=== PATIENT | female | born 1995 | race Caucasian/White ===

== ENCOUNTER 2020-06-01 16:41 | Outpatient (REF) | payer MEDICAID, OTHER, SELFPAY ==
--- NOTE | 2020-06-01 | XR_ITS ---
EXAMINATION: XR CERVICAL SPINE CLINICAL INFORMATION: Pain COMPARISON: None TECHNIQUE: 5 views of the cervical spine were obtained. FINDINGS: There are no prevertebral soft tissue or bony abnormalities demonstrated. No compression fractures or subluxations are identified. Alignment is maintained at the atlanto-axial articulation. The disc spaces are preserved. No endplate changes are seen. The prevertebral soft tissues are normal. The foramina are patent. IMPRESSION: Normal cervical spine radiographs.
--- NOTE | 2020-06-01 | XR_ITS ---
EXAMINATION: XR BILATERAL HIPS WITH AP PELVIS CLINICAL INFORMATION: Pain COMPARISON: None TECHNIQUE: AP view of the pelvis and single views of each hip were obtained. FINDINGS: The bones and soft tissues are normal. No fracture. Mild degenerative changes of SI joints. Hip joints are normal. Pubic symphysis is normal. No abnormal soft tissue calcifications. IMPRESSION: Sclerotic changes of the SI joint suggesting bilateral mild sacroiliitis left more than right. May consider correlation with dedicated SI joint views and/or MRI. Pelvic bones and hips are intact.
--- NOTE | 2020-06-01 | XR_ITS ---
EXAMINATION: XR DORSAL SPINE CLINICAL INFORMATION: Pain COMPARISON: None available at the time of this dictation. TECHNIQUE: Frontal and lateral FINDINGS: There is no evidence of fracture or dislocation. The vertebral bodies maintain normal height and alignment. Intervertebral disc spaces are preserved. The paravertebral soft tissues are unremarkable. Adjacent lungs are clear. IMPRESSION: No radiographic evidence of fracture. No acute osseous changes. Bone alignment satisfactory.
--- NOTE | 2020-06-01 | XR_ITS ---
EXAMINATION: XR LUMBAR SPINE CLINICAL INFORMATION: Pain COMPARISON: None TECHNIQUE: Frontal lateral and coned-down L5-S1 frontal lateral FINDINGS: Five [id number] lumbar vertebrae were identified maintaining normal height and alignments. Intervertebral disc spaces are preserved. Paravertebral soft tissues are unremarkable. There are radiolucencies, most likely superimposed bowel gas.. No radiographic evidence of osteolytic or osteoblastic lesions. IMPRESSION: Normal radiograph. No fracture. Bone alignments are satisfactory.
== END 2020-06-01 16:42 | disposition home or self-care (01) ==
LOC: HO.XRAY 16:41
PROVIDERS: PCP Internal Medicine; Visit Provider Internal Medicine
DX: M54.2 Cervicalgia (principal); M54.9 Dorsalgia, unspecified
CPT/HCPCS: 72050; 72070; 72110; 73521

== ENCOUNTER 2020-07-20 16:12 | Emergency (ER) | payer MEDICAID, OTHER, SELFPAY ==
[2020-07-20 16:39] VITALS: BP 126/75; PULSE 79; RESP 18; TEMP 36.7; O2SAT 98; BMI 38.7
[2020-07-20 17:31] VITALS: BP 111/70; PULSE 75; RESP 16; TEMP 37; O2SAT 98
--- NOTE | 2020-07-20 17:32 | PC.NURSE ---
pt states bleeding x 15 days. changing pad x 5 daily. pt has minimal blood noted on pad at present. instructed not to change pad.
[2020-07-20] MEDS: 0.9 % Sodium Chloride 1,000 ML 999 ML IV (17:36)
[2020-07-20 17:54] LABS: MANUAL DIFF FLAG NO
[2020-07-20 18:03] LABS: Glucose Urine UA NEG (NEG); Leukocyte Esterase Urine TRACE (NEG); Nitrite Urine NEG (NEG); PH 5.5 (5.0-8.0); Specific Gravity - Urine >= 1.030 (1.005-1.025); Urine Blood 3+ (NEG); Urine Ketones 5 MG/DL (NEG); Urine Protein 2+ MG/DL (NEG-TRACE)
[2020-07-20 18:06] LABS: Appearance Urine CLOUDY; Color Urine AMBER
[2020-07-20 18:07] LABS: UPreg QC Valid YES; Urine Pregnancy NEGATIVE (NEGATIVE)
[2020-07-20 18:11] LABS: Basophils Absolute Auto 0.1 X10*3/uL (0.0-0.2); Basophils Percent Auto 0.7 % (0-2); Eosinophils Absolute Auto 0.2 X10*3/uL (0.0-0.4); Eosinophils Percent Auto 1.9 % (0-4); Hematocrit 39.7 % (37-47); Hemoglobin 13.1 g/dl (12.0-16.0); Imm Gran Abs Auto 0.05 X10*3/uL (0.00-0.03); Imm Gran Pct Auto 0.6 % (0.0-0.4); Lymphocytes Absolute Auto 2.5 X10*3/uL (1.2-4.9); Lymphocytes Percent Auto 29.6 % (20-40); Mean Corpuscular Hemoglobin 29.4 pg (27.0-33.0); Mean Platelet Volume 9.9 fL (9.4-12.3); Monocytes Absolute Auto 0.6 X10*3/uL (0.1-1.2); Monocytes Percent Auto 6.6 % (2-11); Neutrophils Absolute Auto 5.1 X10*3/uL (2.0-8.3); Neutrophils Percent Auto 60.6 % (45-73); Platelet Count 311 X10*3/uL (160-400); Red Blood Count 4.46 X10*6/uL (4.20-5.50); Red Cell Distribution Width 12.6 % (11.0-16.0); White Blood Count 8.5 X10*3/uL (4.8-10.8)
[2020-07-20 18:19] LABS: Bacteria Urine 1+ /LPF; RBC Urine 30-49 /HPF (0); Squamous Epithelial Cell Urine 1+ /LPF; WBC Urine 0-2 /HPF (0-4)
[2020-07-20 18:21] LABS: Alanine Aminotransferase 48 U/L (0-31); Albumin Level 4.3 g/dL (3.5-5.0); Alkaline Phosphatase 101 U/L (39-117); Anion Gap 13 (12-20); Aspartate Amino Transferase 26 U/L (5-31); Bilirubin Total 0.2 mg/dL (0.0-1.0); Blood Urea Nitrogen 12 mg/dL (9-16); Calcium 8.4 mg/dL (8.4-10.2); Carbon Dioxide 24 mmol/L (22-29); Chloride 105 mmol/L (96-108); Creatinine Clr Calc Pharmacy 154.3; Estimated Glomerular Filt Rate > 60; Glucose Random 78 mg/dL (60-115); Sodium 138 mmol/L (135-145); Total Protein 6.9 g/dL (6.5-8.0)
[2020-07-20 19:17] VITALS: BP 125/79; PULSE 75; RESP 16; TEMP 36.9; O2SAT 97
--- NOTE | 2020-07-20 19:53 | ED_ITS ---
HPI - General Chief complaint: Vaginal Bleeding Stated complaint: BLEEDING Time Seen by Provider: 07/20/20 16:52 Source: patient Mode of arrival: ambulatory Limitations: no limitations History of Present Illness HPI Narrative: 25-year-old female Presents today with complaint of vaginal bleeding. States she had her normal period 7 days ago and now she has been bleeding for 3 additional days normally her period lasts about 4 days and has been continuing on with heavy bleeding. States her usual pelvic cramping otherwise no dysuria, abdominal pain, nausea vomiting or diarrhea. States no concern for STI. MD Complaint: vaginal bleeding Location: pelvis Radiation: pelvis Associated symptoms: denies other symptoms Vaginal discharge: none Vaginal bleeding: heavy Related Data Allergies Allergy/AdvReac Type Severity Reaction Status Date / Time No Known Allergies Allergy Unverified 04/29/20 19:38 [No Known Allergies*] Review of Systems Review of Systems: Constitutional: No Weight loss, No Fever, No Chills, No Night Sweats, No Fatigue, No Malaise ENT/Mouth: No Hearing loss, No Ear Pain, No Nasal Congestion, No Sinus Pain, No Hoarseness, No sore throat, No Rhinorrhea, No Swallowing Difficulty Eyes: No Eye Pain, No Swelling, No Redness, No Foreign Body, No Discharge, No Vision Changes Cardiovascular: No Chest Pain, No SOB, No Dyspnea on Exertion, No Orthopnea, No Edema, No Palpitations Respiratory: No Cough, No Sputum, No Wheezing, No Smoke Exposure, No Dyspnea Gastrointestinal: No Nausea, No Vomiting, No Diarrhea, No Constipation, No abdominal Pain, No Hematochezia, No Melena Genitourinary: As noted in HPI , No Dysuria, No Urinary Frequency, No Hematuria, No Urinary Incontinence, No Urgency, No Flank Pain, No Urinary Flow Changes, No Hesitancy Musculoskeletal: No joint pain, No Myalgias, No Joint Swelling Skin: No Skin Lesions, No rash Neuro: No Weakness, No Numbness, No Paresthesias, No Loss of Consciousness, No Dizziness, No Headache Psych: No Social Issues Heme/Lymph: No Bruising, No Bleeding,No Lymphadenopathy Endocrine: No Polyuria, No Polydipsia, No Temperature Intolerance Yes all other systems are reviewed and are negative [facility] Past Medical History Medical History (Updated 07/21/20 @ 00:01 by Neeru Smith) Asthma Social History Social History Advance Directives: No Advance Directives Information Provided: Yes Physical Exam Vital Signs: Vital Signs: Last Vital Signs Temp 98.5 F 07/20/20 19:17 Pulse 75 07/20/20 19:17 Resp 16 07/20/20 19:17 BP 125/79 07/20/20 19:17 Pulse Ox 97 07/20/20 19:17 Body Mass Index 38.7 Reviewed MDM - OB/Uterine Contractions MDM Narrative Medical decision making narrative: prolonged period versus dysfunctional uterine bleeding that have some slight pelvic pain thus ultrasound ordered. Labs overall stable with stable H&H. Decline pelvic exam here. 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 Lab Data Result diagrams: 07/20/20 17:26 07/20/20 17:26 Labs: Lab Results 07/20/20 07/20/20 07/20/20 Range/Units 17:26 17:26 17:26 WBC 8.5 (4.8-10.8) X10*3/uL RBC 4.46 (4.20-5.50) X10*6/uL Hgb 13.1 (12.0-16.0) g/dl Hct 39.7 (37-47) % MCV 89.0 (80-98) fL MCH 29.4 (27.0-33.0) pg MCHC 33.0 (31.0-35.0) g/dl RDW 12.6 (11.0-16.0) % Plt Count 311 (160-400) X10*3/uL MPV 9.9 (9.4-12.3) fL Immature Gran % (Auto) 0.6 H (0.0-0.4) % Neut % (Auto) 60.6 (45-73) % Lymph % (Auto) 29.6 (20-40) % Lyon % (Auto) 6.6 (2-11) % Eos % (Auto) 1.9 (0-4) % Baso % (Auto) 0.7 (0-2) % Lymph # (Auto) 2.5 (1.2-4.9) X10*3/uL Lyon # (Auto) 0.6 (0.1-1.2) X10*3/uL Eos # (Auto) 0.2 (0.0-0.4) X10*3/uL Baso # (Auto) 0.1 (0.0-0.2) X10*3/uL Abs Immat Gran (auto) 0.05 H (0.00-0.03) X10*3/uL Absolute Neuts (auto) 5.1 (2.0-8.3) X10*3/uL Absolute Nucleated RBC 0.000 (0.0-0.012) X10*3/uL Nucleated RBC % (auto) 0.0 (0.0-0.2) /100WBC Sodium 138 (135-145) mmol/L Potassium 4.0 (3.3-5.1) mmol/l Chloride 105 (96-108) mmol/L Carbon Dioxide 24 (22-29) mmol/L Anion Gap 13 (12-20) BUN 12 (9-16) mg/dL Creatinine 0.69 (0.5-1.4) mg/dL Estim Creat Clear Calc 154.3 Estimated GFR > 60 Random Glucose 78 (60-115) mg/dL Calcium 8.4 (8.4-10.2) mg/dL Total Bilirubin 0.2 (0.0-1.0) mg/dL AST 26 (5-31) U/L ALT 48 H (0-31) U/L Alkaline Phosphatase 101 (39-117) U/L Total Protein 6.9 (6.5-8.0) g/dL Albumin 4.3 (3.5-5.0) g/dL Urine Color SHU Urine Appearance CLOUDY Urine pH 5.5 (5.0-8.0) Ur Specific [place] >= 1.030 H (1.005-1.025) Urine Protein 2+ H (NEG-TRACE) MG/DL Urine Glucose (UA) NEG (NEG) MG/DL Urine Ketones 5 (NEG) MG/DL Urine Blood 3+ H (NEG) Urine Nitrite NEG (NEG) Ur Leukocyte Esterase TRACE H (NEG) Urine RBC 30-49 H (0) /HPF Urine WBC 0-2 (0-4) /HPF Ur Squamous Epith Cells 1+ /LPF Urine Bacteria 1+ /LPF Urine Test NEGATIVE (NEGATIVE) Discharge Plan Discharge Clinical Impression: Vaginal bleeding Patient Disposition: Home, Self-Care Instructions: Dysfunctional Uterine Bleeding (ED) Referrals: Veronica Matta MD [Primary Care Provider] - 2 days Interventions: ED Discharge Assessment Last Done: 07/20/20 20:11 Discharge Date/Time: 07/20/20 20:15
--- NOTE | 2020-07-20 20:00 | PC.NURSE ---
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 PT UPDATED WAITING FOR ULTRASOUND. PT DID NOT WANT TO WAIT FOR FURTHER EVALUATION. PT STATES WILL F/U WITH HER PCP. IV WAS REMOVED. WAITING FOR D/C PAPERS.
== END 2020-07-20 20:15 | disposition home or self-care (01) ==
PROVIDERS: Nurse Practitioner Primary Care; Emergency Provider Internal Medicine; PCP Internal Medicine
DX: N93.8 Other specified abnormal uterine and vaginal bleeding (principal)
CPT/HCPCS: 36415; 80053; 81001; 81025; 85025; 87086; 96360; 99284

== ENCOUNTER 2020-12-28 17:20 | Emergency (ER) | payer MEDICAID, OTHER, SELFPAY ==
[2020-12-28 17:42] VITALS: BP 144/81; PULSE 85; RESP 18; TEMP 36.6; O2SAT 99; BMI 40.7
--- NOTE | 2020-12-28 18:12 | ED.URI ---
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 No fevers or chills. Received 1st COVID vaccine November 29. She is pending her 2nd vaccine. No cough, shortness of breath, chest pain, leg swelling or pain Related Data Previous Rx's Medication Instructions Recorded amoxicillin-pot clavulanate 1 tab PO Q12H #14 tab 12/28/20 [Augmentin] ciprofloxacin-dexamethasone 4 drp OTIC (EARS) BID 7 Days #7.5 12/28/20 [Ciprodex] ml ibuprofen 600 mg PO Q8H PRN #20 tab 12/28/20 Allergies Allergy/AdvReac Type Severity Reaction Status Date / Time No Known Allergies Allergy Verified 12/28/20 17:42 [No Known Allergies*] Review of Systems Review of Systems: Yes all other systems are reviewed and are negative Constitutional: Constitutional: Reports no additional constitutional complaints, Reports body ache(s), Denies chills, Denies fever(s), Reports headache(s) and Denies weakness Eyes: Eyes: Reports no additional eye complaints and Denies change in vision ENT: Reports system reviewed and no additional complaints, except as documented, Denies dizziness, Reports otalgia, Reports headache(s), Denies nasal congestion, Denies nasal discharge, Denies neck pain and Reports sore throat Cardiovascular: Cardiovascular: Reports no additional cardiovascular complaints, Denies chest pain, Denies leg edema and Denies dyspnea Respiratory: Respiratory: Reports no additional respiratory complaints, Denies cough and Denies dyspnea Gastrointestinal: Gastrointestinal: Reports no additional gastrointestinal complaints, Denies abdominal pain, Denies diarrhea, Denies nausea and Denies vomiting Genitourinary: Genitourinary: Reports no additional female genitourinary complaints and Denies urinary incontinence Musculoskeletal: Musculoskeletal: Reports no additional musculoskeletal complaints, Denies back pain, Denies arthralgias, Denies joint swelling, Denies neck pain, Denies numbness and Denies tingling Integumentary/Breasts: Skin/Breast: Reports system reviewed and no additional complaints, except as docu and Denies rash Neurologic: Denies Abnormal speech present, Denies dizziness, Reports headache(s), Denies numbness, Denies tingling and Denies weakness PMFSH Past Medical History Attestation statement: The following information was validated with the patient. Source: old records reviewed and nursing notes reviewed Medical History Asthma Social History Social History Advance Directives: No Advance Directives Information Provided: No Patient : No Physical Exam Vital Signs: Vital Signs: Last Vital Signs Temp 97.9 F 12/28/20 17:42 Pulse 85 12/28/20 17:42 Resp 18 12/28/20 17:42 BP 144/81 H 12/28/20 17:42 Pulse Ox 99 12/28/20 17:42 Body Mass Index 40.7 Const: General: cooperative, healthy appearing, comfortable and no acute distress Orientation/consciousness: patient oriented x3 Limitations: no limitations HENMT: Head: Yes normal to inspection Ears: hearing grossly normal bilaterally, mastoids normal, no periauricular adenopathy and TM abnormal (Bilateral TM with erythema and bulging) General nose exam: Normal external nose present Face and sinus: Yes normal facial exam Mouth: Normal oral and palatal mucosa present Throat: Yes posterior oropharynx normal Eyes: General: appearance normal, both eyes and all related structures Pupils: Equal, round and reactive pupils present Neck: Neck: Yes normal visual inspection, Yes full ROM, Yes no lymphadenopathy and Yes no meningeal signs Chest: Chest palpation & inspection: normal inspection of the chest Resp: Effort & Inspection: normal respiratory effort Auscultation: clear to auscultation bilaterally Cardio: Rate: regular rate Rhythm: regular rhythm Peripheral pulses: Peripheral pulses 2+ throughout GI: Inspection: Yes normal to inspection Palpation (GI): Soft to palpation and nontender Auscultation: normal bowel sounds Back/Spine/Pelvis: Thoracic/Lumbar Spine: thoracic and lumbar spine normal to inspection Skin: General skin exam: no rashes or lesions noted Neuro: General: patient oriented x3, no meningeal signs, no focal motor deficits and normal sensation to monofilament Cranial nerves: Yes Equal, round and reactive pupils present Cognition (Neuro): normal cognition Speech: No Abnormal speech present Gait exam (Neuro): Normal gait present Motor exam (neuro): 5/5 motor strength present throughout Extrem: General: Yes normal to inspection Course Course Course Narrative: 25 yo female here sore throat, bilateral ear pain, headache, body aches. Exam consistent with bilateral AOM. Will send COVID screen. -COVID screen negative. Will treat AOM with amoxicillin times 10 days. Reviewed worrisome signs and symptoms when to return to the emergency department. Comfortable discharge home. MDM - URI/Sore Throat Medical Records Attestation: I reviewed the patient's medical records. Lab Data Attestation: I reviewed the patient's lab results. Labs: Lab Results 12/28/20 Range/Units 17:55 COVID-19 (SIL) Negative (Negative) COVID-19 Clin Com See Note Discharge Plan Discharge Clinical Impression: Acute otitis media Qualifiers: Otitis media type: suppurative Laterality: bilateral Recurrence: non-recurrent Spontaneous tympanic membrane rupture: without spontaneous rupture Qualified Code(s): H66.003 - Acute suppurative otitis media without spontaneous rupture of ear drum, bilateral Patient Disposition: Home, Self-Care Instructions: Ear Infection (ED) Additional Instructions: Motrin or Tylenol for pain Increase fluids, rest Your COVID test is negative Prescriptions: New amoxicillin-pot clavulanate [Augmentin] 875-125 mg tablet 1 tab PO Q12H Qty: 14 RF: 0 ciprofloxacin-dexamethasone [Ciprodex] 0.3-0.1 % drops,suspension 4 drp otic (ears) BID 7 Days Qty: 7.5 RF: 0 ibuprofen 600 mg tablet 600 mg PO Q8H PRN (Reason: pain) Qty: 20 RF: 0 Referrals: Veronica Matta MD [Primary Care Provider] - 2 days Stand Alone Forms: Work/School Release Interventions: ED Discharge Assessment Last Done: 12/28/20 18:44 Discharge Date/Time: 12/28/20 18:44 Print Language: Thai
[2020-12-28 18:31] LABS: COVID-19 Test Negative (Negative); IDNOW Serial# 08D9AD1C
== END 2020-12-28 18:44 | disposition home or self-care (01) ==
PROVIDERS: Nurse Practitioner Family; Emergency Provider Emergency Medicine; PCP Internal Medicine
DX: H66.003 Acute suppurative otitis media without spontaneous rupture of ear drum, bilateral (principal); Z20.822 Contact with and (suspected) exposure to COVID-19; J02.9 Acute pharyngitis, unspecified
CPT/HCPCS: 36415; 87635; 99283

== ENCOUNTER 2021-01-19 11:40 | Outpatient (REF) | payer MEDICAID, OTHER, SELFPAY ==
--- NOTE | ~2021-01-19 | US_ITS ---
EXAMINATION: US ABDOMEN COMPLETE CLINICAL INFORMATION: Right upper quadrant postprandial pain. COMPARISON: None. TECHNIQUE: Real-time imaging of the abdominal viscera. FINDINGS: PANCREAS: The head and the body of the pancreas is appears unremarkable. The tail is obscured borderline gas. ABDOMINAL AORTA: The proximal, mid, and distal segments are normal in caliber. INFERIOR VENA CAVA: Visualized portions are normal. LIVER: The liver is normal in size. The liver contour is normal. There is mild increased liver echogenicity. No focal hepatic lesion. There is no intrahepatic biliary duct dilatation seen. GALLBLADDER: There are gallbladder fold visualized within. The gallbladder is physiologically distended without evidence of stones, sludge, polyps, wall thickening or pericholecystic fluid. COMMON BILE DUCT: Normal in caliber measuring 0.29 cm in diameter. Limited views. RIGHT KIDNEY: Normal. No hydronephrosis. No renal calculi or focal parenchymal lesions. The kidney measures 11.0 cm in maximum dimension. LEFT KIDNEY: Normal. No hydronephrosis. No renal calculi or focal parenchymal lesions. The kidney measures 11.0 cm in maximum dimension. SPLEEN: Normal. The spleen measures 12.3 cm in maximum dimension. FREE FLUID: None. ADDITIONAL FINDINGS: Incidentally noted is a small anechoic cyst arising off the left ovary measuring 7.7 x 5.2 x 8.2 cm. US/US abdomen complete IMPRESSION: Diffuse hepatic steatosis. No focal lesion seen. Rest of the abdominal ultrasound appears unremarkable. Incidental finding of 7.7 cm left ovarian cyst.
== END 2021-01-19 11:41 | disposition home or self-care (01) ==
LOC: HO.HMGCX 11:40
PROVIDERS: PCP Internal Medicine; Visit Provider Emergency Medicine
DX: R10.11 Right upper quadrant pain (principal); K21.9 Gastro-esophageal reflux disease without esophagitis
CPT/HCPCS: 76700

== ENCOUNTER 2021-04-27 11:59 | Emergency (ER) | payer OTHER, MEDICAID, SELFPAY ==
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
[2021-04-27 12:09] VITALS: BP 129/76; PULSE 79; RESP 17; TEMP 36.5; O2SAT 100; BMI 39.4
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
--- NOTE | 2021-04-27 13:46 | ECG_ITS ---
Test Reason : CHEST WALL PAIN Blood Pressure : / mmHG Vent. Rate : 063 BPM Atrial Rate : 063 BPM P-R Int : 160 ms QRS Dur : 090 ms QT Int : 374 ms P-R-T Axes : 029 012 -09 degrees QTc Int : 382 ms Normal sinus rhythm Nonspecific T wave abnormality Abnormal ECG No previous ECGs available Referred By: Georgette Milner Electronically Signed By:SAPNA JEAN
[2021-04-27] MEDS: Acetaminophen 325 MG TABLET 975 MG PO (14:11)
== END 2021-04-27 15:04 | disposition home or self-care (01) ==
PROVIDERS: Emergency Provider Emergency Medicine; PCP Internal Medicine
DX: S13.4XXA Sprain of ligaments of cervical spine, initial encounter (principal); S46.911A Strain of unspecified muscle, fascia and tendon at shoulder and upper arm level, right arm, initial encounter; S39.012A Strain of muscle, fascia and tendon of lower back, initial encounter; M25.511 Pain in right shoulder; M54.2 Cervicalgia; R07.89 Other chest pain; V43.02XA Car driver injured in collision with other type car in nontraffic accident, initial encounter; Y93.9 Activity, unspecified; Y92.412 Parkway as the place of occurrence of the external cause; Y99.9 Unspecified external cause status; Z79.899 Other long term (current) drug therapy
CPT/HCPCS: 71046; 72072; 72125; 73030; 93005; 99284

== ENCOUNTER 2021-09-05 00:27 | Emergency (ER) | payer MEDICAID, OTHER, SELFPAY ==
[2021-09-05 00:38] VITALS: BP 118/82; PULSE 83; RESP 18; TEMP 37; O2SAT 100; BMI 37.1
[2021-09-05 01:25] LABS: MANUAL DIFF FLAG NO
[2021-09-05 01:27] LABS: Basophils Absolute Auto 0.1 X10*3/uL (0.0-0.2); Basophils Percent Auto 0.7 % (0-2); Eosinophils Absolute Auto 0.2 X10*3/uL (0.0-0.4); Eosinophils Percent Auto 1.7 % (0-4); Hematocrit 38.7 % (37.0-47.0); Hemoglobin 13.2 g/dl (12.0-16.0); Imm Gran Abs Auto 0.02 X10*3/uL (0.00-0.03); Imm Gran Pct Auto 0.2 % (0.0-0.4); Lymphocytes Absolute Auto 3.2 X10*3/uL (1.2-4.9); Lymphocytes Percent Auto 36.8 % (20-40); Mean Corpuscular HGB Conc 34.1 g/dl (31.0-35.0); Mean Corpuscular Hemoglobin 30.3 pg (27.0-33.0); Mean Corpuscular Volume 88.8 fL (80.0-98.0); Mean Platelet Volume 9.5 fL (9.4-12.3); Monocytes Absolute Auto 0.6 X10*3/uL (0.1-1.2); Monocytes Percent Auto 6.9 % (2-11); Neutrophils Absolute Auto 4.7 x10*3/uL (2.0-8.3); Neutrophils Percent Auto 53.7 % (45-73); Platelet Count 316 X10*3/uL (160-400); Red Blood Count 4.36 X10*6/uL (4.20-5.50); Red Cell Distribution Width 12.4 % (11.0-16.0); White Blood Count 8.7 X10*3/uL (4.8-10.8)
[2021-09-05 01:40] LABS: Alanine Aminotransferase 30 U/L (0-31); Albumin Level 4.2 g/dL (3.5-5.0); Alkaline Phosphatase 91 U/L (39-117); Anion Gap 14 (12-20); Aspartate Amino Transferase 16 U/L (5-31); Bilirubin Total 0.3 mg/dL (0.0-1.0); Blood Urea Nitrogen 17 mg/dL (9-16); Calcium 9.3 mg/dL (8.4-10.2); Carbon Dioxide 20 mmol/L (22-29); Chloride 106 mmol/L (96-108); Creatinine Clr Calc Pharmacy 133.9; Estimated Glomerular Filt Rate > 60; Glucose Random 116 mg/dL (60-115); Potassium 4.1 mmol/L (3.3-5.1); Sodium 136 mmol/L (135-145); Total Protein 7.1 g/dL (6.5-8.0)
[2021-09-05 01:41] LABS: COVID-19 Test Negative (Negative)
--- NOTE | 2021-09-05 01:48 | ED.ABDPAIN ---
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 However patient reports that last menstrual period was April but subsequent home tests in May and June were negative for and she endorses that her last sexual intercourse was in June. She presents today for vaginal bleeding that was ?a lot? and then started today with decrease in vaginal bleeding and noted clots but then began developing significant lower abdominal pain with associated nausea and an isolated episode of vomiting but otherwise denies any diarrhea and states that she did have subjective fever and chills but denies any shortness of breath or chest pain. Patient states she is COVID-19 vaccinated and last tested negative on Sunday. Her prior 2 pregnancies were complicated with high blood pressure, but she denies the necessity for early delivery due to the high blood pressure and instead has had 2 C sections, these were conducted in [place]. Related Data Previous Rx's Medication Instructions Recorded amoxicillin 875 mg-potassium 1 tab PO Q12H #14 tab 12/28/20 clavulanate 125 mg tablet (Augmentin) ciprofloxacin 0.3 %-dexamethasone 4 drp OTIC (EARS) BID 7 Days #7.5 12/28/20 0.1 % ear drops,suspension ml (Ciprodex) ibuprofen 600 mg tablet 600 mg PO Q8H PRN #20 tab 12/28/20 cyclobenzaprine 10 mg tablet 10 mg PO Q8H #10 tab 04/27/21 naproxen 500 mg tablet 500 mg PO BID PRN #10 tab 04/27/21 Allergies Allergy/AdvReac Type Severity Reaction Status Date / Time No Known Allergies Allergy Verified 09/05/21 00:45 [No Known Allergies*] Review of Systems Review of Systems Pertinent positives and negatives as stated in HPI 10 point review of systems is otherwise negative. Physical Exam Vital Signs: Vital Signs: Last Vital Signs Temp 98.6 F 09/05/21 00:38 Pulse 83 09/05/21 00:38 Resp 18 09/05/21 00:38 BP 118/82 09/05/21 00:38 Pulse Ox 100 09/05/21 00:38 BMI result Body Mass Index 37.1 VITAL SIGNS: Reviewed. GENERAL: Well developed, well nourished, in no acute distress. HEAD: Normocephalic/atraumatic EYES: PERRLA, EOMI EARS: Ext canals without abnormality, TMs non-bulging and non-erythematous NOSE: Nares patent bilateral OROPHARYNX: no oral lesions noted, posterior pharynx clear and non-erythematous without noted tonsillar enlargement/erythema/exudates NECK: Supple, no adenopathy LUNGS: Normal breath sounds without tachypnea or wheeze. No adventitious sounds or accessory muscle use. SpO2<100> CARDIOVASCULAR: Regular rate and rhythm without noted murmurs, no JVD or lower extremity edema. ABDOMEN: Soft, tenderness noted to lower abdomen without rebound, non-distended with bowel sounds. MUSCULOSKELETAL: No tenderness, deformities, or effusions noted on gross inspection. EXTREMITIES: No cyanosis, clubbing or edema. SKIN: Inspection of the skin reveals no rashes NEUROLOGIC: Alert and oriented x 4. Strength and sensation to light touch were grossly intact x 4. Bedside ultrasound: No intrauterine , yolk sac, gestational sac identified. Course Course Course Narrative: 26-year-old female with history and clinical presentation consistent with possible miscarriage, ectopic, early . Patient received combination analgesics after confirmed to not currently being . Review of all investigations significant for undetectable beta hCG, her vaginal bleeding has stopped, and patient was informed of all results. On re-evaluation patient is began to feel better after receiving analgesics treatment and will be discharged home in stable condition with information on resources should she become again so that she can get appropriate care. Reevaluation(s) Reevaluation #1: Beta hCG undetectable Time: 02:11 MDM - Abdominal Pain Lab Data Result diagrams: 09/05/21 01:09/05/21 01:21 Labs: Lab Results 09/05/21 09/05/21 09/05/21 Range/Units 01: 01:21 01:21 WBC 8.7 (4.8-10.8) X10*3/uL RBC 4.36 (4.20-5.50) X10*6/uL Hgb 13.2 (12.0-16.0) g/dl Hct 38.7 (37.0-47.0) % MCV 88.8 (80.0-98.0) fL MCH 30.3 (27.0-33.0) pg MCHC 34.1 (31.0-35.0) g/dl RDW 12.4 (11.0-16.0) % Plt Count 316 (160-400) X10*3/uL MPV 9.5 (9.4-12.3) fL Immature Gran % (Auto) 0.2 (0.0-0.4) % Neut % (Auto) 53.7 (45-73) % Lymph % (Auto) 36.8 (20-40) % [place] % (Auto) 6.9 (2-11) % Eos % (Auto) 1.7 (0-4) % Baso % (Auto) 0.7 (0-2) % Lymph # (Auto) 3.2 (1.2-4.9) X10*3/uL [place] # (Auto) 0.6 (0.1-1.2) X10*3/uL Eos # (Auto) 0.2 (0.0-0.4) X10*3/uL Baso # (Auto) 0.1 (0.0-0.2) X10*3/uL Abs Immat Gran (auto) 0.02 (0.00-0.03) X10*3/uL Absolute Neuts (auto) 4.7 (2.0-8.3) x10*3/uL Absolute Nucleated RBC 0.000 (0.0-0.012) X10*3/uL Nucleated RBC % (auto) 0.0 (0.0-0.2) /100WBC Sodium 136 (135-145) mmol/L Potassium 4.1 (3.3-5.1) mmol/L Chloride 106 (96-108) mmol/L Carbon Dioxide 20 L (22-29) mmol/L Anion Gap 14 (12-20) BUN 17 H (9-16) mg/dL Creatinine 0.77 (0.5-1.4) mg/dL Estim Creat Clear Calc 133.9 Estimated GFR > 60 Random Glucose 116 H (60-115) mg/dL Calcium 9.3 D (8.4-10.2) mg/dL Total Bilirubin 0.3 (0.0-1.0) mg/dL AST 16 (5-31) U/L ALT 30 (0-31) U/L Alkaline Phosphatase 91 (39-117) U/L Total Protein 7.1 (6.5-8.0) g/dL Albumin 4.2 (3.5-5.0) g/dL Beta HCG, Quant < 2 mIU/mL Urine Color Urine Appearance Urine pH (5.0-8.0) Ur Specific [place] (1.005-1.025) Urine Protein (NEG-TRACE) MG/DL Urine Glucose (UA) (NEG) MG/DL Urine Ketones (NEG) MG/DL Urine Blood (NEG) Urine Nitrite (NEG) Ur Leukocyte Esterase (NEG) Urine RBC (0) /HPF Urine WBC (0-4) /HPF Ur Squamous Epith Cells /LPF Urine Bacteria /LPF COVID-19 (SIL) Negative (Negative) COVID-19 Clin Com See Note Blood Type 09/05/21 09/05/21 Range/Units 01:21 01:55 WBC (4.8-10.8) X10*3/uL RBC (4.20-5.50) X10*6/uL Hgb (12.0-16.0) g/dl Hct (37.0-47.0) % MCV (80.0-98.0) fL MCH (27.0-33.0) pg MCHC (31.0-35.0) g/dl RDW (11.0-16.0) % Plt Count (160-400) X10*3/uL MPV (9.4-12.3) fL Immature Gran % (Auto) (0.0-0.4) % Neut % (Auto) (45-73) % Lymph % (Auto) (20-40) % [place] % (Auto) (2-11) % Eos % (Auto) (0-4) % Baso % (Auto) (0-2) % Lymph # (Auto) (1.2-4.9) X10*3/uL [place] # (Auto) (0.1-1.2) X10*3/uL Eos # (Auto) (0.0-0.4) X10*3/uL Baso # (Auto) (0.0-0.2) X10*3/uL Abs Immat Gran (auto) (0.00-0.03) X10*3/uL Absolute Neuts (auto) (2.0-8.3) x10*3/uL Absolute Nucleated RBC (0.0-0.012) X10*3/uL Nucleated RBC % (auto) (0.0-0.2) /100WBC Sodium (135-145) mmol/L Potassium (3.3-5.1) mmol/L Chloride (96-108) mmol/L Carbon Dioxide (22-29) mmol/L Anion Gap (12-20) BUN (9-16) mg/dL Creatinine (0.5-1.4) mg/dL Estim Creat Clear Calc Estimated GFR Random Glucose (60-115) mg/dL Calcium (8.4-10.2) mg/dL Total Bilirubin (0.0-1.0) mg/dL AST (5-31) U/L ALT (0-31) U/L Alkaline Phosphatase (39-117) U/L Total Protein (6.5-8.0) g/dL Albumin (3.5-5.0) g/dL Beta HCG, Quant mIU/mL Urine Color YELLOW Urine Appearance HAZY Urine pH 6.0 (5.0-8.0) Ur Specific [place] 1.025 (1.005-1.025) Urine Protein TRACE (NEG-TRACE) MG/DL Urine Glucose (UA) NEG (NEG) MG/DL Urine Ketones NEG (NEG) MG/DL Urine Blood 3+ H (NEG) Urine Nitrite NEG (NEG) Ur Leukocyte Esterase NEG (NEG) Urine RBC 0-2 (0) /HPF Urine WBC 1-4 (0-4) /HPF Ur Squamous Epith Cells 3+ /LPF Urine Bacteria 3+ /LPF COVID-19 (SIL) (Negative) COVID-19 Clin Com Blood Type O Positive Discharge Plan Discharge Clinical Impression: Abdominal pain, Miscarriage Patient Disposition: Home, Self-Care Instructions: Miscarriage (ED), Abdominal Pain (ED) Additional Instructions: 1. Tylenol 1000 mg, por v?a oral, cada 6 horas seg?n sea necesario para controlar el dolor. No exceda los 4000 mg dentro de las 24 horas. 2. Ibuprofeno 400 mg, por v?a oral con leche o alimentos, cada 6 horas seg?n sea necesario para controlar el dolor. Puede tanna jeffy medicamento con Tylenol para mejorar el alivio de los s?ntomas. 3. Considere roxanne almohadilla t?rmica para un alivio adicional de los s?ntomas. Regrese a la chu de emergencias si los s?ntomas empeoran. Prescriptions: No Action amoxicillin-pot clavulanate [Augmentin] 875-125 mg tablet 1 tab PO Q12H Qty: 14 RF: 0 ciprofloxacin-dexamethasone [Ciprodex] 0.3-0.1 % drops,suspension 4 drp otic (ears) BID 7 Days Qty: 7.5 RF: 0 ibuprofen 600 mg tablet 600 mg PO Q8H PRN (Reason: pain) Qty: 20 RF: 0 cyclobenzaprine 10 mg tablet 10 mg PO Q8H Qty: 10 RF: 0 naproxen 500 mg tablet 500 mg PO BID PRN (Reason: pain) Qty: 10 RF: 0 Referrals: Veronica Matta MD [Primary Care Provider] - 2 days Print Language: Mongolian [facility] Past Medical History Source: nursing notes reviewed Medical History Asthma Ovarian cyst Social History Social History Advance Directives: No Patient : Yes
[2021-09-05 02:07] LABS: HCG Quantitative < 2 mIU/mL
[2021-09-05 02:08] LABS: Appearance Urine HAZY; Color Urine YELLOW; Glucose Urine UA NEG (NEG); Leukocyte Esterase Urine NEG (NEG); Nitrite Urine NEG (NEG); Specific Gravity - Urine 1.025 (1.005-1.025); UACC Culture Trigger NO; Urine Blood 3+ (NEG); Urine Ketones NEG (NEG); Urine Protein TRACE MG/DL (NEG-TRACE)
[2021-09-05 02:14] LABS: Bacteria Urine 3+ /LPF; RBC Urine 0-2 /HPF (0); Squamous Epithelial Cell Urine 3+ /LPF
[2021-09-05] MEDS: Ketorolac Tromethamine 30 MG/ML VIAL 15 MG IVPUSH (02:20)
[2021-09-05] MEDS: Acetaminophen 325 MG TABLET 975 MG PO (02:20)
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
--- NOTE | 2021-09-05 02:43 | PC.NURSE ---
Pt states pain is improving Will continue to monitor
== END 2021-09-05 02:56 | disposition home or self-care (01) ==
PROVIDERS: Emergency Provider Student in an Organized Health Care Education/Training Program; PCP Internal Medicine
DX: O03.9 Complete or unspecified spontaneous abortion without complication (principal); Z20.822 Contact with and (suspected) exposure to COVID-19
CPT/HCPCS: 36415; 80053; 81001; 81003; 84702; 85025; 86900; 86901; 87635; 96374; 99283; 99284; J1885

== ENCOUNTER 2023-08-02 13:37 | Emergency (ER) | payer SELFPAY ==
[2023-08-02 14:23] VITALS: BP 131/85; PULSE 85; RESP 18; TEMP 36.2; O2SAT 100; BMI 36.3
--- NOTE | 2023-08-02 14:23 | ED_ITS ---
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 No chest pain, shortness of breath, abdominal pain. No sick contact or recent travel. Related Data Previous Rx's Medication Instructions Recorded amoxicillin 875 mg-potassium 1 tab PO Q12H #14 tabs 12/28/20 clavulanate 125 mg tablet (Augmentin) ciprofloxacin 0.3 %-dexamethasone 4 drp otic (ears) BID 7 days #7.5 12/28/20 0.1 % ear drops,suspension mL (Ciprodex) ibuprofen 600 mg tablet 600 mg PO Q8H PRN pain #20 tabs 12/28/20 cyclobenzaprine 10 mg tablet 10 mg PO Q8H Muscle spasm #10 tabs 04/27/21 naproxen 500 mg tablet 500 mg PO BID PRN pain #10 tabs 04/27/21 ondansetron 4 mg disintegrating 4 mg PO Q6H PRN nausea and 08/02/23 tablet vomiting #15 tabs Allergies Allergy/AdvReac Type Severity Reaction Status Date / Time No Known Allergies Allergy Verified 08/02/23 14:23 [No Known Allergies*] Review of Systems 2 Review of Systems: Yes all other systems are reviewed and are negative Constitutional: Constitutional: Reports no additional constitutional complaints, Reports body ache(s), Denies chills, Denies fever(s), Reports headache(s) and Denies weakness Eyes: Eyes: Reports no additional eye complaints and Denies change in vision ENT: Reports system reviewed and no additional complaints, except as documented, Denies dizziness, Reports otalgia, Reports headache(s), Denies nasal congestion, Denies nasal discharge, Denies neck pain and Reports sore throat Cardiovascular: Cardiovascular: Reports no additional cardiovascular complaints, Denies chest pain, Denies leg edema and Denies dyspnea Respiratory: Respiratory: Reports no additional respiratory complaints, Denies cough and Denies dyspnea Gastrointestinal: Gastrointestinal: Reports no additional gastrointestinal complaints, Denies abdominal pain, Denies diarrhea, Reports nausea and Reports vomiting Genitourinary: Genitourinary: Reports no additional female genitourinary complaints and Denies urinary incontinence Musculoskeletal: Musculoskeletal: Reports no additional musculoskeletal complaints, Denies back pain, Denies arthralgias, Denies joint swelling, Denies neck pain, Denies numbness and Denies tingling Integumentary/Breasts: Skin/Breast: Reports system reviewed and no additional complaints, except as docu and Denies rash Neurologic: Reports system reviewed and no additional complaints, except as documented, Denies Abnormal speech present, Denies dizziness, Reports headache(s), Denies numbness, Denies tingling and Denies weakness PMFSH Past Medical History Attestation statement: The following information was validated with the patient. Source: old records reviewed and nursing notes reviewed Medical History Ovarian cyst Asthma Social History Social History Advance Directives: No Advance Directives Information Provided: No Physical Exam ED Vital Signs: Vital Signs - 24 hr 08/02/23 14:23 08/02/23 16:16 08/02/23 16:17 Temperature 97.1 F Pulse Rate 85 68 70 Respiratory Rate 18 Blood Pressure 131/85 122/78 121/84 Pulse Oximetry 100 Oxygen Delivery Method Room Air 08/02/23 16:17 08/02/23 16:18 Temperature 97.8 F Pulse Rate 72 70 Respiratory Rate 19 Blood Pressure 122/82 122/78 Pulse Oximetry 98 Oxygen Delivery Method Room Air BMI result Body Mass Index 36.3 Const General: cooperative, healthy appearing, comfortable and no acute distress Orientation/consciousness: patient oriented x3 Limitations: no limitations [facility] Head: Yes normal to inspection Ears: hearing grossly normal bilaterally and TM's normal bilaterally General nose exam: Normal external nose present Face and sinus: Yes normal facial exam Mouth: Normal oral and palatal mucosa present Throat: Yes posterior oropharynx normal, Yes tonsils normal and Yes uvula midline Eyes General: appearance normal, both eyes and all related structures Pupils: Equal, round and reactive pupils present Neck Neck: Yes normal visual inspection, Yes full ROM, Yes no lymphadenopathy and Yes no meningeal signs Chest Chest palpation & inspection: normal inspection of the chest Resp Effort & Inspection: normal respiratory effort Auscultation: clear to auscultation bilaterally Cardio Rate: regular rate Rhythm: regular rhythm Peripheral pulses: Peripheral pulses 2+ throughout GI Inspection: Yes normal to inspection Palpation (GI): Soft to palpation and nontender Auscultation: normal bowel sounds Back/Spine/Pelvis Thoracic/Lumbar Spine: thoracic and lumbar spine normal to inspection Skin General skin exam: no rashes or lesions noted Neuro General: patient oriented x3, no meningeal signs, no focal motor deficits and normal sensation to monofilament Cranial nerves: Yes Equal, round and reactive pupils present Cognition (Neuro): normal cognition Speech: No Abnormal speech present Gait exam (Neuro): Normal gait present Motor exam (neuro): 5/5 motor strength present throughout Extrem General: Yes normal to inspection Course Course Course Narrative: RME: 28yo F w/PMHx asthma, ovarian cyst c/o fever, myalgias, bilateral ear pain, sore throat, sneezing, nausea, vomiting, diarrhea & abdominal pain x2 days abdomen is soft and nontender Labs, UA, Viral testing ordered Full HPI, ROS and PE to be performed by primary ED provider. Reevaluation(s) Reevaluation #1: UA and urine are negative. Labs are unremarkable. Viral testing is negative. Patient tolerating janeth ivania with no additional vomiting episodes after receiving Zofran. Likely viral syndrome. Reviewed worrisome signs and symptoms of when to return to the emergency room. Comfortable plan for discharge home. Medications Administered Discontinued Medications Generic Name Dose Route Start Last Admin Trade Name Freq PRN Reason Stop Dose Admin Ondansetron HCl 4 mg 08/02/23 15:53 08/02/23 16:33 Ondansetron Odt 4 Mg Tab.Rapdis TRANSLINGU 08/02/23 15:54 4 mg ONCE ONE Administration Medical Decision Making Medical Decision Making [facility] Narrative: 28 yo female with history of asthma here with complaints of 4 days of sneezing, coughing, sore throat, bilateral ear pain, vomiting/diarrhea, headache. No chest pain, shortness of breath, abdominal pain. No sick contact or recent travel. Exam benign. VSS. LS CTA. Abdomen soft/nontender. Will send labs, UA, urine , viral testing, orthostatics Will give SL zofran Differential Diagnosis Differential Diagnoses: The differential diagnosis associated with the presentation includes viral syndrome low concern for intrabdominal pathology Admission/Observation Consideration of admission/observation: Escalation of care including admission/observation considered No focal abdominal pain to suggest need for advanced imaging. Patient tolerating p.o. with no additional vomiting episodes. No need for IV fluids and or admission. Lab Data MDM Lab Attestation statement: I reviewed the patient's lab results. 08/02/23 15:20 08/02/23 15:21 Labs: Lab Results 08/02/23 08/02/23 08/02/23 Range/Units 15:14 15:20 15:21 WBC 7.0 (4.8-10.8) X10*3/uL RBC 4.82 (4.20-5.50) X10*6/uL Hgb 14.1 (12.0-16.0) g/dl Hct 43.0 (37.0-47.0) % MCV 89.2 (80.0-98.0) fL MCH 29.3 (27.0-33.0) pg MCHC 32.8 (31.0-35.0) g/dl RDW 12.8 (11.0-16.0) % Plt Count 302 (160-400) X10*3/uL MPV 9.5 (9.4-12.3) fL Immature Gran % (Auto) 0.1 (0.0-0.4) % Neut % (Auto) 54.0 (45-73) % Lymph % (Auto) 34.5 (20-40) % Long % (Auto) 8.0 (2-11) % Eos % (Auto) 2.3 (0-4) % Baso % (Auto) 1.1 (0-2) % Lymph # (Auto) 2.4 (1.2-4.9) X10*3/uL Long # (Auto) 0.6 (0.1-1.2) X10*3/uL Eos # (Auto) 0.2 (0.0-0.4) X10*3/uL Baso # (Auto) 0.1 (0.0-0.2) X10*3/uL Abs Immat Gran (auto) 0.01 (0.00-0.03) X10*3/uL Absolute Neuts (auto) 3.8 (2.0-8.3) x10*3/uL Absolute Nucleated RBC 0.000 (0.0-0.012) X10*3/uL Nucleated RBC % (auto) 0.0 (0.0-0.2) /100WBC Sodium 138 (135-145) mmol/L Potassium 4.5 (3.3-5.1) mmol/L Chloride 106 (96-108) mmol/L Carbon Dioxide 24 (22-29) mmol/L Anion Gap 13 (12-20) BUN 11 (9-16) mg/dL Creatinine 0.75 (0.5-1.4) mg/dL Estim Creat Clear Calc 133.5 Estimated GFR > 60 Random Glucose 92 (60-115) mg/dL Calcium 9.5 (8.4-10.2) mg/dL Magnesium 2.0 (1.6-2.6) mg/dL Total Bilirubin 0.2 (0.0-1.0) mg/dL Direct Bilirubin < 0.2 (0.0-0.5) mg/dL AST 29 (5-31) U/L ALT 53 H (0-31) U/L Alkaline Phosphatase 88 (39-117) U/L Total Protein 7.4 (6.5-8.0) g/dL Albumin 4.4 (3.5-5.0) g/dL Lipase 14 (8-78) U/L Urine Color Yellow Urine Appearance Cloudy Urine pH 6.0 (5.0-9.0) Ur Specific [place] 1.010 (1.005-1.025) Urine Protein Negative (Neg-Trace) mg/dL Urine Glucose (UA) Negative (Negative) mg/dL Urine Ketones Negative (Negative) mg/dL Urine Blood Negative (Negative) Urine Nitrite Negative (Negative) Ur Leukocyte Esterase Negative (Negative) Urine Test NEGATIVE (NEGATIVE) COVID-19 (SIL) Negative (Negative) COVID-19 Clin Com See Note Influenza Type A (LONA) Negative (Negative) Influenza Type B (LONA) Negative (Negative) Influenza A & B Note See Note Tests considered The following testing was considered but not selected: No focal abdominal pain to suggest need for advanced imaging. Discharge Plan Discharge Clinical Impression: Acute viral syndrome Patient Disposition: Home, Self-Care Instructions: Viral Syndrome (ED) Additional Instructions: Covid test was negative Prescriptions: New ondansetron 4 mg tablet,disintegrating 4 mg PO Q6H PRN (Reason: nausea and vomiting) Qty: 15 0RF No Action amoxicillin-pot clavulanate [Augmentin] 875-125 mg tablet 1 tab PO Q12H Qty: 14 0RF ciprofloxacin-dexamethasone [Ciprodex] 0.3-0.1 % drops,suspension 4 drp otic (ears) BID 7 Days Qty: 7.5 0RF ibuprofen 600 mg tablet 600 mg PO Q8H PRN (Reason: pain) Qty: 20 0RF cyclobenzaprine 10 mg tablet 10 mg PO Q8H Qty: 10 0RF naproxen 500 mg tablet 500 mg PO BID PRN (Reason: pain) Qty: 10 0RF Stand Alone Forms: Work/School Release Print Language: Burmese
[2023-08-02 15:34] LABS: MANUAL DIFF FLAG NO
[2023-08-02 15:36] LABS: Appearance Urine Cloudy; Color Urine Yellow; Glucose Urine UA Negative (Negative); Leukocyte Esterase Urine Negative (Negative); Nitrite Urine Negative (Negative); Urine Blood Negative (Negative); Urine Ketones Negative (Negative); Urine Protein Negative (Neg-Trace)
[2023-08-02 15:37] LABS: UPreg QC Valid YES; Urine Pregnancy NEGATIVE (NEGATIVE)
[2023-08-02 15:37] LABS: Basophils Absolute Auto 0.1 X10*3/uL (0.0-0.2); Basophils Percent Auto 1.1 % (0-2); Eosinophils Absolute Auto 0.2 X10*3/uL (0.0-0.4); Eosinophils Percent Auto 2.3 % (0-4); Hemoglobin 14.1 g/dl (12.0-16.0); Imm Gran Abs Auto 0.01 X10*3/uL (0.00-0.03); Imm Gran Pct Auto 0.1 % (0.0-0.4); Lymphocytes Absolute Auto 2.4 X10*3/uL (1.2-4.9); Lymphocytes Percent Auto 34.5 % (20-40); Mean Corpuscular HGB Conc 32.8 g/dl (31.0-35.0); Mean Corpuscular Hemoglobin 29.3 pg (27.0-33.0); Mean Corpuscular Volume 89.2 fL (80.0-98.0); Mean Platelet Volume 9.5 fL (9.4-12.3); Monocytes Absolute Auto 0.6 X10*3/uL (0.1-1.2); Neutrophils Absolute Auto 3.8 x10*3/uL (2.0-8.3); Platelet Count 302 X10*3/uL (160-400); Red Blood Count 4.82 X10*6/uL (4.20-5.50); Red Cell Distribution Width 12.8 % (11.0-16.0)
[2023-08-02 15:50] LABS: COVID-19 Test Negative (Negative); IDNOW Serial# 9DB6401D; IDNOW Serial# BCCEAD1C; Influenza A Negative (Negative); Influenza B2 Negative (Negative)
[2023-08-02 15:55] LABS: Alanine Aminotransferase 53 U/L (0-31); Albumin Level 4.4 g/dL (3.5-5.0); Alkaline Phosphatase 88 U/L (39-117); Anion Gap 13 (12-20); Aspartate Amino Transferase 29 U/L (5-31); Bilirubin Direct < 0.2 mg/dL (0.0-0.5); Bilirubin Total 0.2 mg/dL (0.0-1.0); Blood Urea Nitrogen 11 mg/dL (9-16); Calcium 9.5 mg/dL (8.4-10.2); Carbon Dioxide 24 mmol/L (22-29); Chloride 106 mmol/L (96-108); Creatinine Clr Calc Pharmacy 133.5; Estimated Glomerular Filt Rate > 60; Glucose Random 92 mg/dL (60-115); Lipase 14 U/L (8-78); Potassium 4.5 mmol/L (3.3-5.1); Sodium 138 mmol/L (135-145); Total Protein 7.4 g/dL (6.5-8.0)
[2023-08-02 16:16] VITALS: BP 122/78; PULSE 68
[2023-08-02 16:17] VITALS: BP 121/84; BP 122/82; PULSE 70; PULSE 72
[2023-08-02 16:18] VITALS: BP 122/78; PULSE 70; RESP 19; TEMP 36.6; O2SAT 98
[2023-08-02] MEDS: Ondansetron ODT 4 MG TAB.RAPDIS TRANSLINGU (16:33)
== END 2023-08-02 19:42 | disposition home or self-care (01) ==
PROVIDERS: Physician Assistant; Emergency Provider Emergency Medicine Emergency Medical Services; PCP Internal Medicine
DX: B34.9 Viral infection, unspecified (principal); R51.9 Headache, unspecified; R11.2 Nausea with vomiting, unspecified; J02.9 Acute pharyngitis, unspecified; H92.03 Otalgia, bilateral; Z11.52 Encounter for screening for COVID-19; Z20.822 Contact with and (suspected) exposure to COVID-19; Z20.828 Contact with and (suspected) exposure to other viral communicable diseases; Z79.899 Other long term (current) drug therapy
CPT/HCPCS: 80048; 80076; 81003; 81025; 83690; 83735; 85025; 87502; 87635; 99283

== ENCOUNTER 2024-03-01 15:52 | Emergency (ER) | payer SELFPAY ==
[2024-03-01 16:02] VITALS: BP 126/86; PULSE 89; RESP 18; TEMP 36.7; O2SAT 98; BMI 35.5
--- NOTE | 2024-03-01 16:05 | ED.GENADULT ---
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 Does not use contacts or glasses Related Data Previous Rx's ?Medication ?Instructions ?Recorded amoxicillin 875 mg-potassium 1 tab PO Q12H #14 tabs 12/28/20 clavulanate 125 mg tablet (Augmentin) ciprofloxacin 0.3 %-dexamethasone 4 drp otic (ears) BID 7 days #7.5 12/28/20 0.1 % ear drops,suspension mL (Ciprodex) ibuprofen 600 mg tablet 600 mg PO Q8H PRN pain #20 tabs 12/28/20 cyclobenzaprine 10 mg tablet 10 mg PO Q8H Muscle spasm #10 tabs 04/27/21 naproxen 500 mg tablet 500 mg PO BID PRN pain #10 tabs 04/27/21 ondansetron 4 mg disintegrating 4 mg PO Q6H PRN nausea and 08/02/23 tablet vomiting #15 tabs erythromycin 5 mg/gram (0.5 %) eye 0.5 inch ophthalmic (eye) BID #3.5 03/01/24 ointment grams Allergies Allergy/AdvReac Type Severity Reaction Status Date / Time No Known Allergies Allergy Verified 03/01/24 16:04 [No Known Allergies*] Review of Systems Review of Systems: Yes all other systems are reviewed and are negative Constitutional: Constitutional: Reports no additional constitutional complaints, Denies body ache(s), Denies chills, Denies fever(s), Denies headache(s) and Denies weakness Eyes: Eyes: Reports no additional eye complaints, Reports blurry vision, Denies change in vision and Reports eye pain ENT: Reports system reviewed and no additional complaints, except as documented, Denies dizziness, Denies headache(s), Denies nasal congestion, Denies nasal discharge and Denies neck pain Cardiovascular: Cardiovascular: Reports no additional cardiovascular complaints, Denies chest pain, Denies leg edema and Denies dyspnea Respiratory: Respiratory: Reports no additional respiratory complaints, Denies cough and Denies dyspnea Gastrointestinal: Gastrointestinal: Reports no additional gastrointestinal complaints, Denies abdominal pain, Denies diarrhea, Denies nausea and Denies vomiting Genitourinary: Genitourinary: Reports no additional female genitourinary complaints and Denies urinary incontinence Musculoskeletal: Musculoskeletal: Reports no additional musculoskeletal complaints, Denies back pain, Denies arthralgias, Denies joint swelling, Denies neck pain, Denies numbness and Denies tingling Integumentary/Breasts: Skin/Breast: Reports system reviewed and no additional complaints, except as docu and Denies rash Neurologic: Reports system reviewed and no additional complaints, except as documented, Denies Abnormal speech present, Denies dizziness, Denies headache(s), Denies numbness, Denies tingling and Denies weakness PMFSH Past Medical History Attestation statement: The following information was validated with the patient. Source: old records reviewed and nursing notes reviewed Medical History Ovarian cyst Asthma Social History Social History Advance Directives: No Advance Directives Information Provided: No Physical Exam ED Vital Signs: Vital Signs - 24 hr 03/01/24 16:02 03/01/24 17:59 03/01/24 18:03 Temperature 98.1 F 98.6 F 98.6 F Pulse Rate 89 71 71 Respiratory Rate 18 19 19 Blood Pressure 126/86 135/85 135/85 Pulse Oximetry 98 99 99 Oxygen Delivery Method Room Air Room Air Room Air BMI result Body Mass Index 35.5 Const General: cooperative, healthy appearing, comfortable and no acute distress Orientation/consciousness: patient oriented x3 Limitations: no limitations HENMT Head: Yes normal to inspection Ears: hearing grossly normal bilaterally General nose exam: Normal external nose present Face and sinus: Yes normal facial exam Mouth: Normal oral and palatal mucosa present Throat: Yes posterior oropharynx normal Eyes Other: PH left eye 7.0 General: appearance normal, both eyes and all related structures Visual Cox: normal visual cox by confrontation Alignment and Position: alignment normal Periorbital: periorbital findings normal Eyelids: Yes eyelids normal Conjunctivae: conjunctival abnormal (left injection ) Sclerae: sclerae normal Corneas: corneas normal and fluorescein used Pupils: Equal, round and reactive pupils present EOM: EOMs intact bilaterally Direct Ophthalmoscopy: normal light reflex Neck Neck: Yes normal visual inspection Chest Chest palpation & inspection: normal inspection of the chest Resp Effort & Inspection: normal respiratory effort Auscultation: clear to auscultation bilaterally Cardio Rate: regular rate Rhythm: regular rhythm Peripheral pulses: Peripheral pulses 2+ throughout GI Inspection: Yes normal to inspection Palpation (GI): Soft to palpation and nontender Auscultation: normal bowel sounds Back/Spine/Pelvis Thoracic/Lumbar Spine: thoracic and lumbar spine normal to inspection Skin General skin exam: no rashes or lesions noted Neuro General: patient oriented x3, no focal motor deficits and normal sensation to monofilament Cranial nerves: Yes Equal, round and reactive pupils present Cognition (Neuro): normal cognition Speech: No Abnormal speech present Gait exam (Neuro): Normal gait present Motor exam (neuro): 5/5 motor strength present throughout Extrem General: Yes normal to inspection Course Course Course Narrative: RME performed by Bisi Beatty PA-C. Patient is a 28 year old assigned female at presenting to the emergency department with left eye pain. Patient states 2 hours ago she got hot oil into her left eye. Detailed physical exam and review of systems are deferred to the labor standards director. Patient placed back in the waiting room pending room availability. Reevaluation(s) Reevaluation #1: The patient was flushed with 2 L of saline via the Alexandro lens. See her documented visual acuity. She does have some photophobia and pain in the left eye although her vision is preserved. She may have a burn or a small corneal abrasion which is not visualized. I will put her on erythromycin eye ointment and recommend supportive care at home. Reviewed worrisome signs and symptoms of when to return to the emergency room. Comfortable plan for discharge home. Medications Administered Discontinued Medications Generic Name Dose Route Start Last Admin Trade Name Freq PRN Reason Stop Dose Admin Erythromycin 1 cm 03/01/24 17:48 03/01/24 17:59 Erythromycin Base 0.5% Oph Oin 1 Gm Tube EYE-LEFT 03/01/24 17:49 1 cm ONCE ONE Administration Fluorescein Sodium 1 strip 03/01/24 16:32 03/01/24 16:36 Fluorescein Sodium Strip EYE-LEFT 03/01/24 16:33 1 strip ONCE ONE Administration Tetracaine HCl 1 drop 03/01/24 16:32 03/01/24 16:36 Tetracaine Hcl/Pf 0.5% Oph Daisy 4 Ml Drops EYE-LEFT 03/01/24 16:33 1 drop ONCE ONE Administration Medical Decision Making Medical Decision Making [facility] Narrative: 28 yr-old female previously healthy here with complaints of left eye pain and blurry vision after splashing hot oil that she was cooking with in her eye. See Pe findings Will need visual acuity, morgans lens for flushing Differential Diagnosis Differential Diagnoses: The differential diagnosis associated with the presentation includes Corneal abrasion, corneal foreign body Admission/Observation Consideration of admission/observation: Escalation of care including admission/observation considered Prescription Management I considered prescription management with: Antibiotic Discharge Plan Discharge Clinical Impression: Burn Patient Disposition: Home, Self-Care Instructions: Superficial Burn (ED) Additional Instructions: Use the ointment for discomfort Cool compresses to the eye Return for worsening symptoms Prescriptions: New erythromycin 5 mg/gram (0.5 %) ointment 0.5 inch ophthalmic (eye) BID Qty: 3.5 0RF No Action amoxicillin-pot clavulanate [Augmentin] 875-125 mg tablet 1 tab PO Q12H Qty: 14 0RF ciprofloxacin-dexamethasone [Ciprodex] 0.3-0.1 % drops,suspension 4 drp otic (ears) BID 7 Days Qty: 7.5 0RF ibuprofen 600 mg tablet 600 mg PO Q8H PRN (Reason: pain) Qty: 20 0RF cyclobenzaprine 10 mg tablet 10 mg PO Q8H Qty: 10 0RF naproxen 500 mg tablet 500 mg PO BID PRN (Reason: pain) Qty: 10 0RF ondansetron 4 mg tablet,disintegrating 4 mg PO Q6H PRN (Reason: nausea and vomiting) Qty: 15 0RF Referrals: Veronica Matta MD [Primary Care Provider] - 5 days Stand Alone Forms: Work/School Release Interventions: ED Discharge Assessment Last Done: 03/01/24 18:03 Discharge Date/Time: 03/01/24 18:03 Print Language: Telugu
[2024-03-01] MEDS: Tetracaine HCl/PF 0.5% Oph Sol 4 ML DROPS 1 DROP EYE-LEFT (16:36)
[2024-03-01] MEDS: Fluorescein Sodium STRIP 1 STRIP EYE-LEFT (16:36)
[2024-03-01 17:59] VITALS: BP 135/85; PULSE 71; RESP 19; TEMP 37; O2SAT 99
[2024-03-01] MEDS: Erythromycin Base 0.5% Oph Oin 1 GM TUBE 1 CM EYE-LEFT (17:59)
[2024-03-01 18:03] VITALS: BP 135/85; PULSE 71; RESP 19; TEMP 37; O2SAT 99
== END 2024-03-01 18:03 | disposition home or self-care (01) ==
PROVIDERS: Emergency Provider Emergency Medicine; PCP Internal Medicine
DX: T26.12XA Burn of cornea and conjunctival sac, left eye, initial encounter (principal); X10.2XXA Contact with fats and cooking oils, initial encounter; Y93.G3 Activity, cooking and baking; Y92.000 Kitchen of unspecified non-institutional (private) residence as the place of occurrence of the external cause; Y99.9 Unspecified external cause status
CPT/HCPCS: 99284

== ENCOUNTER 2024-09-09 15:05 | Emergency (ER) | payer OTHER, SELFPAY ==
--- NOTE | ~2024-09-09 | XR_ITS ---
EXAMINATION: XR HAND, LEFT CLINICAL INFORMATION: crush injury COMPARISON: None available. TECHNIQUE: PA, lateral, and oblique views of the left hand. FINDINGS: Normal bone mineralization. No fracture, dislocation, or focal bony abnormality. There is normal alignment. Joint spaces appear preserved. Dorsal soft tissue swelling noted. XR/XR hand LT min 3V IMPRESSION: No acute fracture or dislocation. Dorsal soft tissue swelling. Electronically signed by: Joselo Thao MD 09/09/2024 04:44 PM [facility]
[2024-09-09 15:20] VITALS: BP 131/89; PULSE 81; RESP 18; TEMP 36.7; O2SAT 100; BMI 33.1
--- NOTE | 2024-09-09 15:22 | ED.UPPEXIN ---
HPI - Extremity Injury (Upper) General Chief Complaint: Extremity Injury, Upper Stated Complaint: Work injury Time Seen by Provider: 09/09/24 17:24 Source: patient and RN notes reviewed Mode of arrival: ambulatory Limitations: no limitations History of Present Illness ED Provider: Tia Rankin PA-C HPI narrative: This is a 29-year-old female, with no known medical problems, who presents emergency department with complaints of left hand pain since today. Patient states that while she was at work today, her left hand got caught on a conveyor belt ultimately crushing her left hand for several minutes. She states that her hand was trapped while the conveyor belt kept running. She states that that her tetanus is up-to-date. Denies taking any medications at home to treat her current symptoms. She is right-hand dominant. No other complaints or concerns at this time. complaint: injury to: left Onset (ago): hour(s) Other injuries: none Handedness: right Place: work Severity: moderate Relieving factors: none Exacerbating factors: movement of extremity Context: crush Associated symptoms: denies other symptoms Related Data Previous Rx's ?Medication ?Instructions ?Recorded amoxicillin 875 mg-potassium 1 tab PO Q12H #14 tabs 12/28/20 clavulanate 125 mg tablet (Augmentin) ciprofloxacin 0.3 %-dexamethasone 4 drp otic (ears) BID 7 days #7.5 12/28/20 0.1 % ear drops,suspension mL (Ciprodex) ibuprofen 600 mg tablet 600 mg PO Q8H PRN pain #20 tabs 12/28/20 cyclobenzaprine 10 mg tablet 10 mg PO Q8H Muscle spasm #10 tabs 04/27/21 naproxen 500 mg tablet 500 mg PO BID PRN pain #10 tabs 04/27/21 ondansetron 4 mg disintegrating 4 mg PO Q6H PRN nausea and 08/02/23 tablet vomiting #15 tabs erythromycin 5 mg/gram (0.5 %) eye 0.5 inch ophthalmic (eye) BID #3.5 03/01/24 ointment grams cephalexin 500 mg capsule 500 mg PO QID 7 days #28 caps 09/09/24 Allergies Allergy/AdvReac Type Severity Reaction Status Date / Time No Known Allergies Allergy Verified 09/09/24 15:24 [No Known Allergies*] Review of Systems Review of Systems: Yes all other systems are reviewed and are negative [facility] Past Medical History Medical History Ovarian cyst Asthma Social History Social History Advance Directives: No Advance Directives Information Provided: No Physical Exam Vital Signs: Vital Signs: Last Vital Signs Temp 98.1 F 09/09/24 17:46 Pulse 81 09/09/24 17:46 Resp 18 09/09/24 17:46 BP 131/89 09/09/24 17:46 Pulse Ox 100 09/09/24 17:46 O2 Del Method Room Air 09/09/24 17:46 BMI result Body Mass Index 33.1 Const: Other: General: Awake, alert, and oriented X3. No acute distress. HEENT: Normal inspection CVS: Normal heart rate and rhythm. Pulses normal. Respiratory: No respiratory distress Skin: Warm, dry, no rashes noted to exposed skin. Normal skin color. Normal skin turgor. Extremities: Left hand, dorsal aspect, there is a 8 cm by 5 cm superficial abrasion noted. No surrounding erythema or warmth. Full ROM of the wrist, and digits. Tender to this region. Neuro: Oriented X 3. No motor deficit. No sensory deficit. Medications Administered Discontinued Medications Generic Name Dose Route Start Last Admin Trade Name Freq PRN Reason Stop Dose Admin Bacitracin 1 appl 09/09/24 17:35 09/09/24 17:38 Bacitracin Oint 0.9 Gm Packet TOPICAL 09/09/24 17:36 1 appl ONCE ONE Administration Protocol Medical Decision Making Medical Decision Making MDM Narrative: This is a 29-year-old female who presents emergency department for evaluation of left hand pain since this afternoon. She was involved in a crush injury to her left hand. On arrival, vital signs within normal limits. She is speaking in full sentences under no acute distress. X-ray was performed revealing no fracture dislocation. She does have left hand dorsal swelling. This area was cleansed with saline. It was also dressed with bacitracin, and was wrapped with nonstick dressing. She was given dressing to replace dressing that she currently has. She was discharged on Keflex. Given strict return precautions. She understands and agrees with plan. She will follow-up with her PCP. No other complaints or concerns at this time. Differential Diagnosis Differential Diagnoses: The differential diagnosis associated with the presentation includes Fracture, abrasion, contusion, dislocation Radiology Impression Discussion of test interpretation with radiology: I have reviewed the radiologist's reading. Radiologist Impression: [facility] [address] [place] [address] XRay Report Signed Patient: Veronica Byrd MR#: [id number] : 1995 Acct:[id number] Age/Sex: 29 / F ADM Date: 09/09/24 Loc: HO.ED Attending Dr: Ordering Physician: Tia Rankin Date of Service: 09/09/24 Procedure(s): XR hand LT min 3V Accession Number(s): [id number] cc: Veronica Matta MD; Tia Rankin~ EXAMINATION: XR HAND, LEFT CLINICAL INFORMATION: crush injury COMPARISON: None available. TECHNIQUE: PA, lateral, and oblique views of the left hand. FINDINGS: Normal bone mineralization. No fracture, dislocation, or focal bony abnormality. There is normal alignment. Joint spaces appear preserved. Dorsal soft tissue swelling noted. XR/XR hand LT min 3V IMPRESSION: No acute fracture or dislocation. Dorsal soft tissue swelling. Electronically signed by: Joselo Thao MD 09/09/2024 04:44 PM [facility] Dictated By: Joselo Thao MD Discharge Plan Discharge Clinical Impression: Abrasion of hand, left, Crush injury Patient Disposition: Home, Self-Care Instructions: Abrasion (ED) Additional Instructions: Follow up with your primary care provider. Return to the emergency department immediately?if your symptoms?were to worsen or if you were to develop any shortness of breath, difficulty breathing, chest pain, dizziness, lightheadedness, back pain, abdominal pain, fever, chills, or any other symptoms. [place]?seguimiento?con finney m?dico de atenci?n primaria. Acuda inmediatamente al servicio de urgencias si zulma s?ntomas empeoran o si presenta falta de aliento, dificultad para respirar, dolor tor?cico, mareos, aturdimiento, dolor de espalda, dolor abdominal, fiebre, escalofr?os o cualquier otro s?ntoma. Take your antibiotic as prescribed until it is complete. Even if your symptoms start to resolve, you must complete the antibiotic course. Armorel el antibi?garland seg?n lo prescrito hasta completarlo. Aunque los s?ntomas empiecen a mejorar, debe completar el tratamiento antibi?garland. If you develop any new or worsening symptoms including but not limited to increased redness, swelling, worsening pain, please seek emergent care. Your x-rays today did not show any bony abnormalities. Prescriptions: New cephalexin 500 mg capsule 500 mg PO QID 7 Days Qty: 28 0RF No Action amoxicillin-pot clavulanate [Augmentin] 875-125 mg tablet 1 tab PO Q12H Qty: 14 0RF ciprofloxacin-dexamethasone [Ciprodex] 0.3-0.1 % drops,suspension 4 drp otic (ears) BID 7 Days Qty: 7.5 0RF ibuprofen 600 mg tablet 600 mg PO Q8H PRN (Reason: pain) Qty: 20 0RF cyclobenzaprine 10 mg tablet 10 mg PO Q8H Qty: 10 0RF naproxen 500 mg tablet 500 mg PO BID PRN (Reason: pain) Qty: 10 0RF ondansetron 4 mg tablet,disintegrating 4 mg PO Q6H PRN (Reason: nausea and vomiting) Qty: 15 0RF erythromycin 5 mg/gram (0.5 %) ointment 0.5 inch ophthalmic (eye) BID Qty: 3.5 0RF Stand Alone Forms: Work/School Release Interventions: ED Discharge Assessment Last Done: 09/09/24 17:46 Discharge Date/Time: 09/09/24 17:46 Print Language: [place] Leonean
[2024-09-09] MEDS: Bacitracin Oint 0.9 GM PACKET 1 APPL TOPICAL (17:38)
[2024-09-09 17:46] VITALS: BP 131/89; PULSE 81; RESP 18; TEMP 36.7; O2SAT 100
== END 2024-09-09 17:46 | disposition home or self-care (01) ==
PROVIDERS: Emergency Provider Emergency Medicine; PCP Internal Medicine
DX: S60.512A Abrasion of left hand, initial encounter (principal); W31.82XA Contact with other commercial machinery, initial encounter; M79.642 Pain in left hand; Y93.89 Activity, other specified; Y92.9 Unspecified place or not applicable; Y99.0 Civilian activity done for income or pay
CPT/HCPCS: 73130; 99282; 99283

== ENCOUNTER → 2024-09-09 15:26 | Outpatient (BNV) | payer SELFPAY | PROVIDERS: PCP Internal Medicine; Visit Provider Radiology Diagnostic Radiology | DX: S67.22XA Crushing injury of left hand, initial encounter (principal) | CPT/HCPCS: 73130 ==

== ENCOUNTER 2024-12-01 09:30 | Emergency (ER) | payer SELFPAY ==
[2024-12-01 09:43] VITALS: BP 130/72; PULSE 76; RESP 18; TEMP 36.7; O2SAT 100; BMI 32.3
[2024-12-01 10:03] LABS: IDNOW Serial# 55D5AD1C; Strep A Nucleic Acid Negative (Negative)
--- NOTE | 2024-12-01 10:25 | ED_ITS ---
HPI - General Adult General Chief complaint: General Medical Stated complaint: sore throat nausea Time Seen by Provider: 12/01/24 10:16 Source: patient and RN notes reviewed Mode of arrival: ambulatory Limitations: no limitations History of Present Illness ED Provider: Tia Pimentel PA-C HPI narrative: This is a 29-year-old female, with a past medical history of asthma, who presents emergency department with multiple complaints. Patient reports that she has had chest pain and upper back pain for the last week. She also states she was shortness for breath. She denies any fevers, she does endorse chills. She denies any cough, congestion, sore throat, ear pain, abdominal pain, nausea, vomiting or diarrhea. She states that her partner smokes heavily in front of her. She denies any smoking history. She does report that she has a history of asthma. She describes the chest pain as a tight sensation, constant, worsening with depressed. She also reports that her job is very physically demanding. She states that chest pain and back pain also worsens with palpation. Denies taking any medications at home to treat her current symptoms. She denies any travel, surgery, or hospitalizations. She is not on control. No other complaints or concerns at this time. MD complaint: Multiple complaints Onset (ago): week(s) Radiation: non-radiation Severity: moderate Quality: aching Pain Consistency: constant Relieving factors: none Exacerbating factors: none Associated symptoms: chest pain, fever/chills and shortness of breath Treatments prior to arrival: none Related Data Previous Rx's ?Medication ?Instructions ?Recorded amoxicillin 875 mg-potassium 1 tab PO Q12H #14 tabs 12/28/20 clavulanate 125 mg tablet (Augmentin) ciprofloxacin 0.3 %-dexamethasone 4 drp otic (ears) BID 7 days #7.5 12/28/20 0.1 % ear drops,suspension mL (Ciprodex) ibuprofen 600 mg tablet 600 mg PO Q8H PRN pain #20 tabs 12/28/20 cyclobenzaprine 10 mg tablet 10 mg PO Q8H Muscle spasm #10 tabs 04/27/21 naproxen 500 mg tablet 500 mg PO BID PRN pain #10 tabs 04/27/21 ondansetron 4 mg disintegrating 4 mg PO Q6H PRN nausea and 08/02/23 tablet vomiting #15 tabs erythromycin 5 mg/gram (0.5 %) eye 0.5 inch ophthalmic (eye) BID #3.5 03/01/24 ointment grams cephalexin 500 mg capsule 500 mg PO QID 7 days #28 caps 09/09/24 Allergies Allergy/AdvReac Type Severity Reaction Status Date / Time No Known Allergies Allergy Verified 12/01/24 09:46 [No Known Allergies*] Review of Systems 2 Review of Systems: Yes all other systems are reviewed and are negative Constitutional: Constitutional: Reports as per [facility] Past Medical History Attestation statement: The following information was validated with the patient. Medical History Ovarian cyst Asthma Social History Social History Smoked in Last 30 Days: No Use of substances other than those prescribed or required for medical reasons: No Advance Directives: No Advance Directives Information Provided: Yes Physical Exam ED Vital Signs: Vital Signs - 24 hr 12/01/24 09:43 12/01/24 12:44 Temperature 98.1 F 98.1 F Pulse Rate 76 76 Respiratory Rate 18 18 Blood Pressure 130/72 130/72 Pulse Oximetry 100 100 Oxygen Delivery Method Room Air Room Air BMI result Body Mass Index 32.3 Const General: cooperative, comfortable and no acute distress Orientation/consciousness: patient oriented x3 Limitations: no limitations [facility] Head: Yes normal to inspection, Yes normocephalic and Yes atraumatic Ears: hearing grossly normal bilaterally and TM's normal bilaterally General nose exam: Normal external nose present Face and sinus: Yes normal facial exam Mouth: Normal oral and palatal mucosa present, oropharynx normal and moist mucous membranes Throat: Yes posterior oropharynx normal Eyes General: appearance normal, both eyes and all related structures Eyelids: Yes eyelids normal Conjunctivae: conjunctivae normal Sclerae: sclerae normal Pupils: Equal, round and reactive pupils present EOM: EOMs intact bilaterally Neck Neck: Yes normal visual inspection, Yes full ROM and Yes no lymphadenopathy Lymphatic: no lymphadenopathy noted Chest Chest palpation & inspection: normal inspection of the chest Resp Effort & Inspection: normal respiratory effort and able to speak in complete sentences Auscultation: clear to auscultation bilaterally, no crackles, no rales, no rhonchi and no wheezes Cardio Rate: regular rate Rhythm: regular rhythm Heart sounds: S1 normal heart sound present and S2 normal heart sound present GI Other: Abdomen is soft, nontender, nondistended Inspection: Yes normal to inspection Skin General skin exam: no rashes or lesions noted Trauma: no lacerations or abrasions Wounds: no wounds Neuro General: patient oriented x3 and moves all extremities Cranial nerves: Yes Equal, round and reactive pupils present Extrem General: Yes normal to inspection Right upper extremity: normal to inspection Left upper extremity: normal to inspection Right lower extremity: normal to inspection Left lower extremity: normal to inspection Course Reevaluation(s) Reevaluation #1: D-dimer is negative therefore chest x-ray was ordered. 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 I discussed with patient that she should have a chest x-ray to rule out any acute process however patient reports that she must leave. I discussed with patient that if she was leaving, this would be against medical advice and I can not guarantee that there was no life-threatening illness or injury without having the x-ray done. She has good oxygen saturation, good air movement, and her vitals remained stable. However given refusal of chest x-ray prior to departure, she will sign against medical advice paperwork. Time: 13:11 Medical Decision Making Medical Decision Making MDM Narrative: This is a 29-year-old Japanese-speaking female, with a history of asthma, who presents emergency department with concerns for shortness for breath and chest pain for the last week. On arrival, patient well-appearing, speaking in full sentences under no acute distress. Lungs are clear to auscultation bilaterally. Heart is regular rate and rhythm. Viral swabs were ordered prior to my assessment, which were negative. Negative strep swab as well. Given chest pain and shortness breath, added on labs, EKG, and a D-dimer. Diagnostic imaging of the chest is deferred as I do not want to radiate her twice CAT scan. Will await results to determine whether not patient needs a chest x-ray or a CAT scan. She does not have any risk factors however given pleuritic chest pain, will obtain D-dimer for rule out. Denies smoking history. Differential Diagnosis Differential Diagnoses: The differential diagnosis associated with the presentation includes URI, COVID, flu, RSV, pleurisy, PE, ACS-unlikely Lab Data MDM Lab Attestation statement: I reviewed the patient's lab results. See course comment 12/01/24 11:03 12/01/24 11:03 Labs: Lab Results 12/01/24 12/01/24 Range/Units 09:49 11:03 WBC 5.8 (4.8-10.8) X10*3/uL RBC 4.58 (4.20-5.50) X10*6/uL Hgb 13.3 (12.0-16.0) g/dl Hct 40.4 (37.0-47.0) % MCV 88.2 (80.0-98.0) fL MCH 29.0 (27.0-33.0) pg MCHC 32.9 (31.0-35.0) g/dl RDW 13.3 (11.0-16.0) % Plt Count 282 (160-400) X10*3/uL MPV 9.4 (9.4-12.3) fL Immature Gran % (Auto) 0.2 (0.0-0.4) % Neut % (Auto) 56.5 (45-73) % Lymph % (Auto) 32.9 (20-40) % [place] % (Auto) 6.3 (2-11) % Eos % (Auto) 2.7 (0-4) % Baso % (Auto) 1.4 (0-2) % Lymph # (Auto) 1.9 (1.2-4.9) X10*3/uL [place] # (Auto) 0.4 (0.1-1.2) X10*3/uL Eos # (Auto) 0.2 (0.0-0.4) X10*3/uL Baso # (Auto) 0.1 (0.0-0.2) X10*3/uL Abs Immat Gran (auto) 0.01 (0.00-0.03) X10*3/uL Absolute Neuts (auto) 3.3 (2.0-8.3) x10*3/uL Absolute Nucleated RBC 0.000 (0.0-0.012) X10*3/uL Nucleated RBC % (auto) 0.0 (0.0-0.2) /100WBC D-Dimer High Sensitivty < 150 NG/ML Sodium 142 (135-145) mmol/L Potassium 3.8 (3.3-5.1) mmol/L Chloride 110 H (96-108) mmol/L Carbon Dioxide 26 (22-29) mmol/L Anion Gap 10 L (12-20) BUN 9 (9-16) mg/dL Creatinine 0.73 (0.5-1.4) mg/dL Estim Creat Clear Calc 127.9 Estimated GFR > 60 Random Glucose 67 (60-115) mg/dL Calcium 8.7 D (8.4-10.2) mg/dL Magnesium 1.7 (1.6-2.6) mg/dL Total Bilirubin 0.3 (0.0-1.0) mg/dL Direct Bilirubin 0.1 (0.0-0.5) mg/dL AST 32 H (5-31) U/L ALT 40 H (0-31) U/L Alkaline Phosphatase 79 (39-117) U/L Troponin I High Sens < 2.7 (<3.5-17.0) ng/L Total Protein 6.5 (6.5-8.0) g/dL Albumin 4.0 (3.5-5.0) g/dL Lipase 14 (8-78) U/L Beta HCG, Quant < 2 mIU/mL Influenza Type A (PCR) NEGATIVE (Negative) Influenza Type B (PCR) NEGATIVE (Negative) RSV RNA Qual (PCR) NEGATIVE (Negative) SARS-CoV-2 RNA (RT-PCR) NEGATIVE (Negative) S. pyogenes GrpA LONA Negative (Negative) Radiology Impression Discussion of test interpretation with radiology: I have reviewed the radiologist's reading. External Record Review External record reviewed: Inpatient record, Office record, Outpatient record, Prior outpatient labs, Prior outpatient radiology, Primary care record and Outside ED record Discharge Plan Discharge Clinical Impression: Chest pain Patient Disposition: Left Against Medical Advice Instructions: Chest Pain (ED) Additional Instructions: You were seen in the emergency department today. You tested negative for COVID, flu, RSV and strep throat. Your blood work was reassuring. You are not . Your EKG did not show any concerning findings. I wanted you to have a chest x-ray however you could not stay. Given this, you are leaving against medical advice as we can not believe medically clear you to ensure that no harmful processes occurring. You understand the risks of leaving without being fully medically evaluated, the risks are severe injury and or . Please follow-up with your primary care physician regarding this visit. Prescriptions: No Action amoxicillin-pot clavulanate [Augmentin] 875-125 mg tablet 1 tab PO Q12H Qty: 14 0RF ciprofloxacin-dexamethasone [Ciprodex] 0.3-0.1 % drops,suspension 4 drp otic (ears) BID 7 Days Qty: 7.5 0RF ibuprofen 600 mg tablet 600 mg PO Q8H PRN (Reason: pain) Qty: 20 0RF cyclobenzaprine 10 mg tablet 10 mg PO Q8H Qty: 10 0RF naproxen 500 mg tablet 500 mg PO BID PRN (Reason: pain) Qty: 10 0RF cephalexin 500 mg capsule 500 mg PO QID 7 Days Qty: 28 0RF ondansetron 4 mg tablet,disintegrating 4 mg PO Q6H PRN (Reason: nausea and vomiting) Qty: 15 0RF erythromycin 5 mg/gram (0.5 %) ointment 0.5 inch ophthalmic (eye) BID Qty: 3.5 0RF Stand Alone Forms: Against Medical Advice Interventions: ED Discharge Assessment Last Done: 12/01/24 12:44 Discharge Date/Time: 12/01/24 12:44 Print Language: Japanese
[2024-12-01 10:32] LABS: Influenza A PCR NEGATIVE (Negative); Influenza B PCR NEGATIVE (Negative); Resp Syncy Virus RNA Qual PCR NEGATIVE (Negative); SARS COV2 PCR INHOUSE NEGATIVE (Negative)
--- NOTE | 2024-12-01 10:49 | ECG_ITS ---
Test Reason : cp Blood Pressure : */* mmHG Vent. Rate : 64 BPM Atrial Rate : 64 BPM P-R Int : 150 ms QRS Dur : 90 ms QT Int : 364 ms P-R-T Axes : 29 10 4 degrees QTcB Int : 375 ms Normal sinus rhythm with sinus arrhythmia Normal ECG When compared with ECG of 27-Apr-2021 14:19, No significant change was found Referred By: Tia Pimentel Electronically Signed By: KAROLINA DHILLON
[2024-12-01 11:08] LABS: MANUAL DIFF FLAG NO
[2024-12-01 11:10] LABS: Basophils Absolute Auto 0.1 X10*3/uL (0.0-0.2); Basophils Percent Auto 1.4 % (0-2); Eosinophils Absolute Auto 0.2 X10*3/uL (0.0-0.4); Eosinophils Percent Auto 2.7 % (0-4); Hematocrit 40.4 % (37.0-47.0); Hemoglobin 13.3 g/dl (12.0-16.0); Imm Gran Abs Auto 0.01 X10*3/uL (0.00-0.03); Imm Gran Pct Auto 0.2 % (0.0-0.4); Lymphocytes Absolute Auto 1.9 X10*3/uL (1.2-4.9); Lymphocytes Percent Auto 32.9 % (20-40); Mean Corpuscular HGB Conc 32.9 g/dl (31.0-35.0); Mean Corpuscular Volume 88.2 fL (80.0-98.0); Mean Platelet Volume 9.4 fL (9.4-12.3); Monocytes Absolute Auto 0.4 X10*3/uL (0.1-1.2); Monocytes Percent Auto 6.3 % (2-11); Neutrophils Absolute Auto 3.3 x10*3/uL (2.0-8.3); Neutrophils Percent Auto 56.5 % (45-73); Platelet Count 282 X10*3/uL (160-400); Red Blood Count 4.58 X10*6/uL (4.20-5.50); Red Cell Distribution Width 13.3 % (11.0-16.0); White Blood Count 5.8 X10*3/uL (4.8-10.8)
[2024-12-01 11:36] LABS: Alanine Aminotransferase 40 U/L (0-31); Alkaline Phosphatase 79 U/L (39-117); Anion Gap 10 (12-20); Aspartate Amino Transferase 32 U/L (5-31); Bilirubin Direct 0.1 mg/dL (0.0-0.5); Bilirubin Total 0.3 mg/dL (0.0-1.0); Blood Urea Nitrogen 9 mg/dL (9-16); Calcium 8.7 mg/dL (8.4-10.2); Carbon Dioxide 26 mmol/L (22-29); Chloride 110 mmol/L (96-108); Creatinine Clr Calc Pharmacy 127.9; Estimated Glomerular Filt Rate > 60; Glucose Random 67 mg/dL (60-115); HCG Quantitative < 2 mIU/mL; Lipase 14 U/L (8-78); Magnesium 1.7 mg/dL (1.6-2.6); Potassium 3.8 mmol/L (3.3-5.1); Sodium 142 mmol/L (135-145); Total Protein 6.5 g/dL (6.5-8.0); Troponin-I High Sensitivity < 2.7 ng/L (<3.5-17.0)
[2024-12-01 11:42] LABS: D Dimer High Sensitivity < 150 NG/ML
--- NOTE | 2024-12-01 12:38 | PC.NURSE ---
PT stated she needs to leave to orange picker her kid, states I have no one to help me it's just us. Provider Margarito notified. This nurse provided education on risks of going AMA. PT verbalizes understanding of AMA, form signed second witness provided,Provider signed form as well.
[2024-12-01 12:44] VITALS: BP 130/72; PULSE 76; RESP 18; TEMP 36.7; O2SAT 100
== END 2024-12-01 12:44 | disposition left against medical advice (07) ==
PROVIDERS: Physician Assistant Medical; Emergency Provider Emergency Medicine; PCP Internal Medicine
DX: J02.9 Acute pharyngitis, unspecified (principal); R10.2 Pelvic and perineal pain; I49.8 Other specified cardiac arrhythmias; R07.89 Other chest pain; R11.0 Nausea; R06.02 Shortness of breath; M54.50 Low back pain, unspecified; Z03.818 Encounter for observation for suspected exposure to other biological agents ruled out; Z79.899 Other long term (current) drug therapy
CPT/HCPCS: 0241U; 36415; 80048; 80076; 83690; 83735; 84484; 84702; 85025; 85379; 87651; 93005; 99283; 99284

== ENCOUNTER → 2024-12-01 10:49 | Outpatient (BNV) | payer SELFPAY | PROVIDERS: Emergency Provider Emergency Medicine; PCP Internal Medicine; Visit Provider Internal Medicine | DX: R07.9 Chest pain, unspecified (principal) | CPT/HCPCS: 93010 ==

== ENCOUNTER 2024-12-04 11:18 | Emergency (ER) | payer SELFPAY ==
--- NOTE | ~2024-12-04 | XR_ITS ---
EXAMINATION: XR CHEST CLINICAL INFORMATION: cp/sob COMPARISON: 04/27/2021. TECHNIQUE: 2 views of the chest were obtained. FINDINGS: The cardiac, hilar, and mediastinal contours are normal. The lungs are clear bilaterally. There is no pneumothorax or pleural effusion. There is no focal osseous or soft tissue abnormality. XR/XR chest 2V IMPRESSION: No active pulmonary disease. Electronically signed by: Joselo Thao MD 12/04/2024 12:25 PM EDT
[2024-12-04 11:38] VITALS: BP 123/75; PULSE 72; RESP 16; TEMP 36.6; O2SAT 100; BMI 30.7
--- NOTE | 2024-12-04 11:39 | ECG_ITS ---
Test Reason : CP Blood Pressure : */* mmHG Vent. Rate : 67 BPM Atrial Rate : 67 BPM P-R Int : 148 ms QRS Dur : 86 ms QT Int : 352 ms P-R-T Axes : 29 -1 -2 degrees QTcB Int : 371 ms Normal sinus rhythm T wave abnormality, consider anterior ischemia Abnormal ECG When compared with ECG of 01-Dec-2024 10:53, No significant change was found Referred By: Leti Gore Electronically Signed By: KAROLINA DHILLON
--- NOTE | 2024-12-04 11:39 | ED.SOB ---
HPI - SOB/Dyspnea General Chief Complaint: General Medical Stated Complaint: Trouble Breathing, Chest Pain Time Seen by Provider: 12/04/24 14:28 Source: patient Mode of arrival: ambulatory Limitations: language barrier (workforce development program director used) History of Present Illness ED Provider: SADIE SOLOMON PA-C HPI Narrative: 29-year-old [place]-speaking female with pmhx significant for asthma presents to the ED today for evaluation of chest tightness, shortness of breath and headache x1 week. She was evaluated for the same on 12/01/2024 but left AMA as she had to picker/puller her child. 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 She only occasionally wears a mask at work. She does have a history of asthma, states the dust has been exacerbating this. She has been out of her albuterol inhaler for a few weeks. Denies any tobacco use however states her has a heavy smoker. Denies any sputum production. Denies recent travel or long car rides. Denies OCP use. Related Data Previous Rx's ?Medication ?Instructions ?Recorded amoxicillin 875 mg-potassium 1 tab PO Q12H #14 tabs 12/28/20 clavulanate 125 mg tablet (Augmentin) ciprofloxacin 0.3 %-dexamethasone 4 drp otic (ears) BID 7 days #7.5 12/28/20 0.1 % ear drops,suspension mL (Ciprodex) ibuprofen 600 mg tablet 600 mg PO Q8H PRN pain #20 tabs 12/28/20 cyclobenzaprine 10 mg tablet 10 mg PO Q8H Muscle spasm #10 tabs 04/27/21 naproxen 500 mg tablet 500 mg PO BID PRN pain #10 tabs 04/27/21 ondansetron 4 mg disintegrating 4 mg PO Q6H PRN nausea and 08/02/23 tablet vomiting #15 tabs erythromycin 5 mg/gram (0.5 %) eye 0.5 inch ophthalmic (eye) BID #3.5 03/01/24 ointment grams cephalexin 500 mg capsule 500 mg PO QID 7 days #28 caps 09/09/24 albuterol sulfate 90 mcg/actuation 2 inh inhalation Q20M PRN 12/04/24 aerosol inhaler shortness of breath or wheezing #8.5 grams azithromycin 250 mg tablet See Rx Instructions PO .COMPLEX #6 12/04/24 tabs prednisone 20 mg tablet 40 mg (2 x 20 mg) PO DAILY 5 days 12/04/24 #10 tabs Allergies Allergy/AdvReac Type Severity Reaction Status Date / Time No Known Allergies Allergy Verified 12/04/24 11:42 [No Known Allergies*] Review of Systems Review of Systems: Yes all other systems are reviewed and are negative [facility] Past Medical History Attestation statement: The following information was validated with the patient. Source: old records reviewed and nursing notes reviewed Medical History Ovarian cyst Asthma Social History Social History Unable to assess alcohol history related to: Unknown Alcohol intake: never Smoked in Last 30 Days: No Use of substances other than those prescribed or required for medical reasons: No Any prior treatment program specific to substance use: No Advance Directives: No Advance Directives Information Provided: Yes Do you have a plan to hurt others: No Plan Physical Exam Vital Signs: Vital Signs: Last Vital Signs Temp 97.8 F 12/04/24 17:23 Pulse 79 12/04/24 17:23 Resp 18 12/04/24 17:23 BP 137/80 12/04/24 17:23 Pulse Ox 100 12/04/24 17:23 O2 Del Method Room Air 12/04/24 17:23 BMI result Body Mass Index 30.7 Stable vitals. General: Well appearing, in no acute distress. Skin: Warm, dry, intact. No rashes or lesions. Head: Normocephalic, atraumatic. EENT: Hearing is intact b/l. Conjunctiva clear. Sclera is anicteric. Neck: Supple without LAD. FROM. Cardiac: Chest wall symmetric. RRR. Lungs: Normal respiratory effort without accessory muscle use. CTA bilaterally. No adventitious breath sounds. Abdomen: Soft, non-tender, non-distended. No rebound tenderness or guarding. Positive BS x4. Ext: Upper and lower extremities atraumatic. No calf tenderness bilaterally. Neuro: AOx3. Normal speech. Course Course Course Narrative: This is a Rapid Medical Exam performed in triage by Leti Pouliot PA-C. Full HPI, ROS and PE to be performed by primary ED provider. 29-year-old female, with a past medical history of asthma, who presents emergency department c/o SOB, CP, chills, fever, myalgias, fatigue x 4 days. Was evaluated in our ED on 12/01 for similar sx w/negative w/u PE: nontoxic appearing, talking in complete sentences, no resp distress Plan: EKG, labs, UA, NORMAN, CXR Reevaluation(s) Reevaluation #1: CBC without leukocytosis or left shift. No anemia. H&H stable. Chemistry without acute electrolyte abnormality requiring intervention. No MALA. Liver function around baseline. Troponin undetectable. Urine without infection. Negative COVID, flu, RSV. Chest x-ray normal. EKG normal. D-dimer obtained 3 days ago undetectable. PERC 0, PE unlikely. > patient treated with bronch treatment in the ED. will treat for bronchitis. Azithromycin, prednisone and albuterol inhaler sent to pharmacy. Patient has remained stable throughout ED visit today. Discussed worrisome signs and symptoms and when to return to the ED. All questions answered at this time. Patient is agreeable with disposition and stable for discharge. Medications Administered Discontinued Medications Generic Name Dose Route Start Last Admin Trade Name Freq PRN Reason Stop Dose Admin Albuterol/Ipratropium 3 ml 12/04/24 15:51 12/04/24 16:00 Albuterol/Iprat 2.5/0.5mg 3 Ml Ampul.Neb INHALE 12/04/24 15:52 3 ml ONCE ONE Administration Medical Decision Making Medical Decision Making MDM Narrative: 29-year-old [place]-speaking female with pmhx significant for asthma presents to the ED today for evaluation of chest tightness, shortness of breath and headache x1 week. Vital signs stable. Not tachycardic or hypoxic. She was well-appearing and in no acute distress. No tripoding. Lungs are CTA bilaterally without adventitious breath sounds. No calf tenderness. No JVD or pitting edema. Differential diagnosis includes viral syndrome, bronchitis, pneumonia, asthma, asthma exacerbation, pleurisy, costochondritis PERC 0 - d-dimmer obtained 3 days ago which was normal. PE unlikely. EKG, chest x-ray, labs, viral swabs, UA, bronch protocol Differential Diagnosis Differential Diagnoses: The differential diagnosis associated with the presentation includes As above Admission/Observation Not indicated Lab Data MDM Lab Attestation statement: I reviewed the patient's lab results. As above 12/04/24 12:08 12/04/24 12:08 Labs: Lab Results 12/04/24 12/04/24 12/04/24 Range/Units 12:08 15:05 15:06 WBC 6.3 (4.8-10.8) X10*3/uL RBC 4.49 (4.20-5.50) X10*6/uL Hgb 12.8 (12.0-16.0) g/dl Hct 39.2 (37.0-47.0) % MCV 87.3 (80.0-98.0) fL MCH 28.5 (27.0-33.0) pg MCHC 32.7 (31.0-35.0) g/dl RDW 13.2 (11.0-16.0) % Plt Count 291 (160-400) X10*3/uL MPV 9.7 (9.4-12.3) fL Immature Gran % (Auto) 0.2 (0.0-0.4) % Neut % (Auto) 57.6 (45-73) % Lymph % (Auto) 31.2 (20-40) % Elk % (Auto) 7.3 (2-11) % Eos % (Auto) 2.7 (0-4) % Baso % (Auto) 1.0 (0-2) % Lymph # (Auto) 2.0 (1.2-4.9) X10*3/uL Elk # (Auto) 0.5 (0.1-1.2) X10*3/uL Eos # (Auto) 0.2 (0.0-0.4) X10*3/uL Baso # (Auto) 0.1 (0.0-0.2) X10*3/uL Abs Immat Gran (auto) 0.01 (0.00-0.03) X10*3/uL Absolute Neuts (auto) 3.6 (2.0-8.3) x10*3/uL Absolute Nucleated RBC 0.000 (0.0-0.012) X10*3/uL Nucleated RBC % (auto) 0.0 (0.0-0.2) /100WBC Sodium 140 (135-145) mmol/L Potassium 3.8 (3.3-5.1) mmol/L Chloride 108 (96-108) mmol/L Carbon Dioxide 29 (22-29) mmol/L Anion Gap 7 L (12-20) BUN 14 (9-16) mg/dL Creatinine 0.62 (0.5-1.4) mg/dL Estim Creat Clear Calc 146.7 Estimated GFR > 60 Random Glucose 67 (60-115) mg/dL Calcium 9.2 (8.4-10.2) mg/dL Magnesium 1.7 (1.6-2.6) mg/dL Total Bilirubin 0.2 (0.0-1.0) mg/dL Direct Bilirubin < 0.2 (0.0-0.5) mg/dL AST 59 H (5-31) U/L ALT 83 H (0-31) U/L Alkaline Phosphatase 102 (39-117) U/L Troponin I High Sens < 2.7 (<3.5-17.0) ng/L Total Protein 6.6 (6.5-8.0) g/dL Albumin 3.9 (3.5-5.0) g/dL Urine Color Yellow Urine Appearance Clear Urine pH 5.5 (5.0-9.0) Ur Specific [place] >= 1.030 H (1.005-1.025) Urine Protein Negative (Neg-Trace) mg/dL Urine Glucose (UA) Negative (Negative) mg/dL Urine Ketones Negative (Negative) mg/dL Urine Blood Negative (Negative) Urine Nitrite Negative (Negative) Ur Leukocyte Esterase Negative (Negative) Urine Test NEGATIVE (NEGATIVE) Influenza Type A (PCR) NEGATIVE (Negative) Influenza Type B (PCR) NEGATIVE (Negative) RSV RNA Qual (PCR) NEGATIVE (Negative) SARS-CoV-2 RNA (RT-PCR) NEGATIVE (Negative) S. pyogenes GrpA LONA Negative (Negative) Independent Interpretation I performed an independent interpretation of an: EKG and Plain X-Ray Interpretation: EKG showing sinus rhythm at 67 beats per minute, no acute ischemic changes or ST elevations Chest x-ray without infiltrate or consolidation to suggest pneumonia Radiology Impression Discussion of test interpretation with radiology: I have reviewed the radiologist's reading. Radiologist Impression: Procedure(s): XR chest 2V Accession Number(s): [id number] cc: Veronica Matta MD; Leti Gore~ EXAMINATION: XR CHEST CLINICAL INFORMATION: cp/sob COMPARISON: 04/27/2021. TECHNIQUE: 2 views of the chest were obtained. FINDINGS: The cardiac, hilar, and mediastinal contours are normal. The lungs are clear bilaterally. There is no pneumothorax or pleural effusion. There is no focal osseous or soft tissue abnormality. XR/XR chest 2V IMPRESSION: No active pulmonary disease. Electronically signed by: Joselo Thao MD 12/04/2024 12:25 PM EDT RP External Record Review External record reviewed: Inpatient record Prescription Management I considered prescription management with: Antibiotic and Other (prednisone) Chronic Conditions Patient?s care impacted by: Other (asthma) Social Determinants Patient?s care significantly limited by Social Determinants of Health including: Other Social Determinant of Health Critical Care Time Critical Care Time Critical Care Time: No Discharge Plan Discharge Clinical Impression: Bronchitis Patient Disposition: Home, Self-Care Instructions: Albuterol (By breathing), Prednisone (By mouth), Acute Bronchitis (ED) Additional Instructions: Your workup today is reassuring. Your labs are reassuring. Your chest x-ray is normal. You tested negative for COVID, flu, RSV. I am treating you for bronchitis. See home care instructions. Azithromycin as an antibiotic that I am sending to your pharmacy. Take this as prescribed over the next 5 days. I am sending prednisone, steroid to your pharmacy. Take this as prescribed over the next 5 days. I am also sending a refill of your albuterol. Use this as needed for shortness of breath. If you find yourself needing this more often and you were not finding relief, please return to the ED as you may require further treatment. Follow up with your outpatient providers. Return with any new or worsening symptoms. In the case of an emergency call 911. Make sure you are wearing your mask at work to mitigate inhaling any dust. Prescriptions: New azithromycin 250 mg tablet See Rx Instructions .ROUTE .COMPLEX Qty: 6 0RF Rx Instructions: For 250 mg dose pack: take 500 mg today (day 1), then 250 mg for 4 days (days 2-5) prednisone 20 mg tablet 40 mg PO DAILY 5 Days Qty: 10 0RF albuterol sulfate 90 mcg/actuation HFA aerosol inhaler 2 inh inhalation Q20M PRN (Reason: shortness of breath or wheezing) Qty: 8.5 0RF No Action amoxicillin-pot clavulanate [Augmentin] 875-125 mg tablet 1 tab PO Q12H Qty: 14 0RF ciprofloxacin-dexamethasone [Ciprodex] 0.3-0.1 % drops,suspension 4 drp otic (ears) BID 7 Days Qty: 7.5 0RF ibuprofen 600 mg tablet 600 mg PO Q8H PRN (Reason: pain) Qty: 20 0RF cyclobenzaprine 10 mg tablet 10 mg PO Q8H Qty: 10 0RF naproxen 500 mg tablet 500 mg PO BID PRN (Reason: pain) Qty: 10 0RF cephalexin 500 mg capsule 500 mg PO QID 7 Days Qty: 28 0RF ondansetron 4 mg tablet,disintegrating 4 mg PO Q6H PRN (Reason: nausea and vomiting) Qty: 15 0RF erythromycin 5 mg/gram (0.5 %) ointment 0.5 inch ophthalmic (eye) BID Qty: 3.5 0RF Referrals: Veronica Matta MD [Primary Care Provider] - Stand Alone Forms: Work/School Release Interventions: ED Discharge Assessment Last Done: 12/04/24 17:23 Discharge Date/Time: 12/04/24 17:30 Print Language: [place]
[2024-12-04 12:15] LABS: MANUAL DIFF FLAG NO
[2024-12-04 12:17] LABS: Basophils Absolute Auto 0.1 X10*3/uL (0.0-0.2); Eosinophils Absolute Auto 0.2 X10*3/uL (0.0-0.4); Eosinophils Percent Auto 2.7 % (0-4); Hematocrit 39.2 % (37.0-47.0); Hemoglobin 12.8 g/dl (12.0-16.0); Imm Gran Abs Auto 0.01 X10*3/uL (0.00-0.03); Imm Gran Pct Auto 0.2 % (0.0-0.4); Lymphocytes Percent Auto 31.2 % (20-40); Mean Corpuscular HGB Conc 32.7 g/dl (31.0-35.0); Mean Corpuscular Hemoglobin 28.5 pg (27.0-33.0); Mean Corpuscular Volume 87.3 fL (80.0-98.0); Mean Platelet Volume 9.7 fL (9.4-12.3); Monocytes Absolute Auto 0.5 X10*3/uL (0.1-1.2); Monocytes Percent Auto 7.3 % (2-11); Neutrophils Absolute Auto 3.6 x10*3/uL (2.0-8.3); Neutrophils Percent Auto 57.6 % (45-73); Platelet Count 291 X10*3/uL (160-400); Red Blood Count 4.49 X10*6/uL (4.20-5.50); Red Cell Distribution Width 13.2 % (11.0-16.0); White Blood Count 6.3 X10*3/uL (4.8-10.8)
[2024-12-04 12:25] LABS: IDNOW Serial# 58CA691E; Strep A Nucleic Acid Negative (Negative)
[2024-12-04 12:30] LABS: Alanine Aminotransferase 83 U/L (0-31); Albumin Level 3.9 g/dL (3.5-5.0); Alkaline Phosphatase 102 U/L (39-117); Anion Gap 7 (12-20); Aspartate Amino Transferase 59 U/L (5-31); Bilirubin Direct < 0.2 mg/dL (0.0-0.5); Bilirubin Total 0.2 mg/dL (0.0-1.0); Blood Urea Nitrogen 14 mg/dL (9-16); Calcium 9.2 mg/dL (8.4-10.2); Carbon Dioxide 29 mmol/L (22-29); Chloride 108 mmol/L (96-108); Creatinine Clr Calc Pharmacy 146.7; Estimated Glomerular Filt Rate > 60; Glucose Random 67 mg/dL (60-115); Magnesium 1.7 mg/dL (1.6-2.6); Potassium 3.8 mmol/L (3.3-5.1); Sodium 140 mmol/L (135-145); Total Protein 6.6 g/dL (6.5-8.0)
[2024-12-04 12:39] LABS: Troponin-I High Sensitivity < 2.7 ng/L (<3.5-17.0)
[2024-12-04 12:54] LABS: Influenza A PCR NEGATIVE (Negative); Influenza B PCR NEGATIVE (Negative); Resp Syncy Virus RNA Qual PCR NEGATIVE (Negative); SARS COV2 PCR INHOUSE NEGATIVE (Negative)
[2024-12-04 15:15] LABS: Appearance Urine Clear; Color Urine Yellow; Glucose Urine UA Negative (Negative); Leukocyte Esterase Urine Negative (Negative); Nitrite Urine Negative (Negative); PH 5.5 (5.0-9.0); Specific Gravity - Urine >= 1.030 (1.005-1.025); Urine Blood Negative (Negative); Urine Ketones Negative (Negative); Urine Protein Negative (Neg-Trace)
[2024-12-04 15:16] LABS: UPreg QC Valid YES; Urine Pregnancy NEGATIVE (NEGATIVE)
[2024-12-04 15:38] VITALS: BP 120/75; PULSE 81; RESP 18; TEMP 36.6; O2SAT 100
[2024-12-04 15:51] VITALS: PULSE 89; RESP 22; O2SAT 99
[2024-12-04] MEDS: Albuterol/Iprat 2.5/0.5MG 3 ML AMPUL.NEB INHALE (16:00)
[2024-12-04 16:33] VITALS: BP 137/80; PULSE 79; RESP 18; TEMP 36.6; O2SAT 100
--- OUTSIDE RECORDS SUMMARY | 2024-12-04 17:02 | XMS_ITS | Continuity of Care Document ---
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 [address] [facility], [id number] [place], [place], [id number], . tel:[phone] Family History Family Member Type Diagnosis Age At Onset No Information Payers Payer name Insurance type Covered republican ID Osman joyce(s) D Slide A 09 [id number] Social History Type Description Quantity Date Captured [...]
[2024-12-04 17:23] VITALS: BP 137/80; PULSE 79; RESP 18; TEMP 36.6; O2SAT 100
== END 2024-12-04 17:30 | disposition home or self-care (01) ==
PROVIDERS: Physician Assistant; Emergency Provider Emergency Medicine; PCP Internal Medicine
DX: J40 Bronchitis, not specified as acute or chronic (principal); R07.9 Chest pain, unspecified; R06.02 Shortness of breath; R51.9 Headache, unspecified; Z03.818 Encounter for observation for suspected exposure to other biological agents ruled out
CPT/HCPCS: 0241U; 71046; 80048; 80076; 81003; 81025; 83735; 84484; 85025; 87651; 93005; 94640; 99284; 99285

== ENCOUNTER → 2024-12-04 11:39 | Outpatient (BNV) | payer SELFPAY | PROVIDERS: PCP Internal Medicine; Visit Provider Internal Medicine | DX: R94.31 Abnormal electrocardiogram [ECG] [EKG] (principal); R07.9 Chest pain, unspecified | CPT/HCPCS: 93010 ==

== ENCOUNTER → 2024-12-04 11:42 | Outpatient (BNV) | payer SELFPAY | PROVIDERS: PCP Internal Medicine; Visit Provider Radiology Diagnostic Radiology | DX: R07.9 Chest pain, unspecified (principal); R06.02 Shortness of breath | CPT/HCPCS: 71046 ==

== ENCOUNTER 2025-04-16 05:26 | Emergency (ER) | payer MEDICAID, OTHER, SELFPAY ==
--- OUTSIDE RECORDS SUMMARY | 2017-12-17 12:30 | XMS_ITS | Continuity of Care Document ---
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 Name Role Phone Unavailable Unavailable Unavailable Allergies, Adverse Reactions, Alerts Substance Reaction Status Criticality No Known Allergies Active No Inform ation Medications Medication Instructions Dosage Effective Dates (start - stop) Status Comments No Drug Therapy Prescribed Procedures Procedure Date Comprehensive Oral Evaluation-New Or Est ablished P Treatment Plan Initiated Prophylaxis-Adult Oral Hygiene Instructions Bitewings-Four Films Intraoral-Periapical First Film 018 Intraoral-Periapical Each Additional Jhon m Treatment Plan Not Started Advance Directives Directive Yes / No Effective Date File Name No Information Encounters Encounter Description Practice Location Reason(s) For Visit Diagnoses Date Provider Providers Copied on Encounter [facility], [address] [place] [address], [id number], tel:[phone] [facility] Dental Encounter for screening for dental disorders 8 No Information [facility], [address] [place] [address], [address], tel:[phone] [facility] Dental No Information 8 Juan Schaefer. [address] [facility], [id number] [place], [place], [id number], . tel:[phone] Family History Family Member Type Diagnosis Age At Onset No Information Payers Payer name Insurance type Covered constitution party ID Osman joyce(s) D Slide A 09 [id number] Social History Type Description Quantity Date Captured Comments Alcohol Use Details Unknown Caffeine Use Details Unknown Tobacco Use Status Current non-smoker 17 Smoking Status Never smoker Non-Smoking Tobacco Use Details : No Details Available : No Details Available Sex Female Vital Signs Date / Time: Height Weight BMI Pulse Rate Blood Pressure Temperature Respiratory Rate Body Surface Area Head Circumference Head Circ. Percentile Wt./Jose. Percentile BMI percentile Pulse Ox Inhaled Ox 4:59 PM 72 /min 111/74 mm[Hg] Chief Complaint And Reason For Visit No Information Reason For Referral Reason For Referral No Information History Of Present Illness Encounter Date Complaint History Of Prese nt Illness No Information Functional Status Date Functional Assessmen t No Information Medications Administered Medication Instructions Dosage Effective Dates (start - stop) Status Comments No Drug Therapy Prescribed Instructions Date Instruction Additional Infor mation No Information Assessments Type Assessment Date No Information Patient Care Teams Name Effective Dates (start - stop) Status Members No Information
--- NOTE | ~2025-04-16 | XR_ITS ---
CLINICAL HISTORY: left sided low back pain 3 views lumbar spine Comparison: None Findings: 5 nonrib-bearing lumbar type vertebral bodies. Normal alignment. No fractures or dislocations. L5-S1 disc height loss, disc heights are maintained at the other levels. Unremarkable facets. Sacroiliac joints are unremarkable. Visualized abdomen and pelvis demonstrate nothing unusual. Impression: 1. L5-S1 disc height loss. This document has been electronically signed by: Bhumi Hernandez MD on 04/16/2025 08:35:27
[2025-04-16 05:28] VITALS: BP 140/100; PULSE 79; RESP 18; TEMP 36.1; O2SAT 98; BMI 33.8
--- NOTE | 2025-04-16 05:56 | ED_ITS ---
HPI - General Adult General Chief complaint: Back Pain/Injury Stated complaint: lower back pain Time Seen by Provider: 04/16/25 05:56 History of Present Illness ED Provider: Edilia ASHRAF narrative: The patient is a 30-year-old female who denies any significant past medical history. She has been having problems with left-sided back pain for about 4 weeks. She said that these problems began when she was carrying a heavy item at work. She says that she was lifting a heavy item when she felt a pop in her left lower back. She has had pain since then that was waxing and waning for a couple of weeks but got much worse about 2 days ago. She feels the pain mostly in the left lower back and radiates down the left leg. Sometimes she feels that the left leg goes ?paralyzed. ? She says that for the past 2 days she has been unable to sleep because of the pain and this morning she drove herself to the hospital because of this pain. She does not think she is . She says that she recently started having her period. She is not on any medications. Inessa jain is not on any contraception. She has had no fever, sweats, chills. No dysuria, urgency, frequency. No abdominal pain, nausea, vomiting. She says that sometimes the pain radiates down the left leg but sometimes it seems to radiate up her back to her head and then she feels dizzy. The patient has been out of work for the last 3 weeks because of this pain. The patient is concerned because she does not believe her work place provides insurance for work-related issues. Related Data Previous Rx's ?Medication ?Instructions ?Recorded amoxicillin 875 mg-potassium 1 tab PO Q12H #14 tabs clavulanate 125 mg tablet (Augmentin) ciprofloxacin 0.3 %-dexamethasone 4 drp otic (ears) BI D 7 days #7.5 12/28/20 0.1 % ear drops,suspension mL (Ciprodex) ibuprofen 600 mg tablet 600 mg PO Q8H PRN pain #20 t abs 12/28/20 cyclobenzaprine 10 mg tablet 10 mg PO Q8H Muscle spasm #10 tabs 04/27/21 naproxen 500 mg tablet 500 mg PO BID PRN pain #10 t abs 04/27/21 ondansetron 4 mg disintegrating 4 mg PO Q6H PRN nausea and 08/02/23 tablet vomiting #15 tabs erythromycin 5 mg/gram (0.5 %) eye 0.5 inch ophthalmic (eye) BID #3.5 03/01/24 ointment grams cephalexin 500 mg capsule 500 mg PO QID 7 days #28 cap s 09/09/24 albuterol sulfate 90 mcg/actuation 2 inh inhalation Q2 0M PRN 12/04/24 aerosol inhaler shortness of breath or wheez ing #8.5 grams azithromycin 250 mg tablet See Rx Instructions PO .COM PLEX #6 12/04/24 tabs prednisone 20 mg tablet 40 mg (2 x 20 mg) PO DAILY 5 days 12/04/24 #10 tabs acetaminophen 500 mg capsule 1,000 mg (2 x 500 mg) PO Q8H PRN 04/16/25 fever or pain #18 caps cyclobenzaprine 10 mg tablet 10 mg PO TID PRN muscle s pasm #15 04/16/25 tabs ibuprofen 400 mg tablet 400 mg PO Q6H PRN pain #18 t abs 04/16/25 Allergies Allergy/AdvReac Type Severity Reaction Status Date / Time No Known Allergies (No Known Allergy Verified 04/16/25 05:30 Allergies*) Review of Systems Review of Systems: Yes all other systems are reviewed and are negative [facility] Past Medical History Medical History Ovarian cyst Asthma Social History Social History Unable to assess alcohol history related to: Unknown Alcohol intake: never Smoked in Last 30 Days: No Use of substances other than those prescribed or required for medical reasons: No Advance Directives: No Advance Directives Information Provided: Yes Physical Exam ED Vital Signs: Vital Signs - 24 hr 04/16/25 05:28 04/16/25 05:58 04/16/25 07:11 Temperature 97 F 98.1 F Pulse Rate 79 73 70 Respiratory Rate 18 18 16 Blood Pressure 140/100 H 120/69 126/99 H Pulse Oximetry 98 99 99 Oxygen Delivery Method Room Air Room Air Room Air 04/16/25 08:46 Temperature 98.1 F Pulse Rate 70 Respiratory Rate 16 Blood Pressure 126/99 H Pulse Oximetry 99 Oxygen Delivery Method Room Air BMI result Body Mass Index 33.8 Const Other: The patient is a 30-year-old female who was awake and alert. She is pleasant and cooperative. She was standing next to the stretcher looking somewhat uncomfortable. She said that standing was the position of comfort. HENMT Other: The face is symmetrical. ?Mucous membranes moist. Eyes Other: Pupils are round equal, conjunctivae are clear, extraocular movements intact Neck Neck: Yes normal visual inspection and Yes full ROM Resp Effort & Inspection: normal respiratory effort Auscultation: clear to auscultation bilaterally Cardio Rate: regular rate Rhythm: regular rhythm Heart sounds: S1 normal heart sound present and S2 normal heart sound present GI Other: Abdomen is soft and nontender Back/Spine/Pelvis Other: There is tenderness in the region of the left posterior superior iliac spine. Skin Other: The skin is dry and unremarkable General skin exam: no rashes or lesions noted Neuro Other: The patient is awake and alert with a normal mental status. Cranial nerves 2-12 are grossly intact. She moves her extremities symmetrically and appropriately with normal strength and sensation. She has 2+ reflexes at the knees and ankles. Toes go down bilaterally. Extrem Other: There is no calf swelling or tenderness. No asymmetry. No peripheral edema. Medications Administered Discontinued Medications Generic Name Dose Route Start Last Admin Trade Name Blairq PRN Reason Stop Dose Admin Acetaminophen 975 mg 04/16/25 06:17 04/16/25 06:31 Acetaminophen 325 Mg Tablet PO 04/16/25 06:18 975 mg ONCE ONE Administration Ketorolac Tromethamine 30 mg 04/16/25 06:17 04/16/25 06:31 Ketorolac Tromethamine 30 Mg/Ml Vial IM 04/16/25 06:18 30 mg ONCE ONE Administration Medical Decision Making Medical Decision Making [facility] Narrative: The patient is a 30-year-old female who presents with left lower back pain that began with lifting a proximally 4 weeks ago. The pain has been waxing and waning but has been much worse over the last 2 days. It radiates down the left leg. This seems to be a case of a sciatica like back pain syndrome. Her abdomen is benign. She is neurologically intact. No bowel or bladder control symptoms. No fever. She has a negative test. There was hematuria on her UA but she is just starting her period she says. Plain films of the lower back show no dramatic abnormalities. The patient was treated with a IM ketorolac and oral acetaminophen. She was slightly better. No indication for hospitalization or additional testing. The patient does not believe that her work place participates in workmen's compensation. Nevertheless the patient was referred to the [facility] in case she can be seen there. Additionally the patient was seen by a financial counselor to help with insurance issues in addition to workmen's compensation. Lab Data Labs: Lab Results 04/16/25 Range/Units 06:35 Urine Color Yellow Urine Appearance Clear Urine pH 5.5 (5.0-9.0) Ur Specific [place] 1.025 (1.005-1.025) Urine Protein Trace (Neg-Trace) mg/dL Urine Glucose (UA) Negative (Negative) mg/dL Urine Ketones Negative (Negative) mg/dL Urine Blood Large (3+) H (Negative) Urine Nitrite Negative (Negative) Ur Leukocyte Esterase Small (1+) H (Negative) Urine RBC >20 H (0-2) /HPF Urine WBC 11-20 H (0-5) /HPF Ur Squamous Epith Cells 0-2 (0-2) /HPF Urine Bacteria None Seen (None Seen) Hyaline Casts 0-2 (0-2) /LPF Urine Test NEGATIVE (NEGATIVE) Discharge Plan Discharge Clinical Impression: Acute left-sided low back pain with left-sided sciatica Patient Disposition: Home, Self-Care Instructions: Sciatica (ED), Acute Low Back Pain (ED) Additional Instructions: I think the pain you has been experiencing is primarily a musculoskeletal pain which will require rest and time to get better. My hope is that you might be able to get seen at the [facility]. This is a Clinic here at [facility] that deals with a work-related issues. Please contact them and see if they are able to see you. Unfortunately I cannot guarantee they will be able to see you. I have sent prescriptions for acetaminophen and ibuprofen to the pharmacy at the [facility]. I have also sent a prescription for the muscle relaxant cyclobenzaprine which you may use as needed. Be careful with cyclobenzaprine because it can make you drowsy. Do not take this medication if you will be driving or working. I would also recommend trying to establish yourself has a patient at the [facility] if you are able to. Return to the emergency room if significantly worse. Prescriptions: New cyclobenzaprine 10 mg tablet 10 mg PO TID PRN (Reason: muscle spasm) Qty: 15 0RF ibuprofen 400 mg tablet 400 mg PO Q6H PRN (Reason: pain) Qty: 18 0RF acetaminophen 500 mg capsule 1,000 mg PO Q8H PRN (Reason: fever or pain) Qty: 18 0RF No Action amoxicillin-pot clavulanate [Augmentin] 875-125 mg tablet 1 tab PO Q12H Qty: 14 0RF ciprofloxacin-dexamethasone [Ciprodex] 0.3-0.1 % drops,suspension 4 drp otic (ears) BID 7 Days Qty: 7.5 0RF ibuprofen 600 mg tablet 600 mg PO Q8H PRN (Reason: pain) Qty: 20 0RF cyclobenzaprine 10 mg tablet 10 mg PO Q8H Qty: 10 0RF naproxen 500 mg tablet 500 mg PO BID PRN (Reason: pain) Qty: 10 0RF cephalexin 500 mg capsule 500 mg PO QID 7 Days Qty: 28 0RF azithromycin 250 mg tablet See Rx Instructions .ROUTE .COMPLEX Qty: 6 0RF Rx Instructions: For 250 mg dose pack: take 500 mg today (day 1), then 250 mg for 4 days (days 2-5) prednisone 20 mg tablet 40 mg PO DAILY 5 Days Qty: 10 0RF albuterol sulfate 90 mcg/actuation HFA aerosol inhaler 2 inh inhalation Q20M PRN (Reason: shortness of breath or wheezing) Qty: 8.5 0RF ondansetron 4 mg tablet,disintegrating 4 mg PO Q6H PRN (Reason: nausea and vomiting) Qty: 15 0RF erythromycin 5 mg/gram (0.5 %) ointment 0.5 inch ophthalmic (eye) BID Qty: 3.5 0RF Referrals: [facility] [Provider Group] [facility] [Provider Group] Interventions: ED Discharge Assessment Last Done: 04/16/25 08:46 Discharge Date/Time: 04/16/25 08:47 Print Language: [place] Islander
[2025-04-16 05:58] VITALS: BP 120/69; PULSE 73; RESP 18; TEMP 36.7; O2SAT 99
--- OUTSIDE RECORDS SUMMARY | 2025-04-16 06:11 | XMS_ITS | Clinical Summary ---
Author Organization [facility] Address [address] [address] [place] [id number] Phone Care Team Providers Care Deputy Chief Sheriff Name Role Phone Veronica Matta MD Primary Care Provider + Allergies Active Allergy Reactions Criticality Noted Date Comments Cat Hair Standardized Allergenic Extract 08/15/2019 Dog Dander 08/15/2019 Medications albuterol 90 mcg/actuation inhaler Inhale 2 puffs into the lungs every 4 (four) hours. 1 Inhaler 08/15/2019 Active ibuprofen (ADVIL,MOTRIN) 600 MG tablet Take 1 tablet (600 mg total) by mouth every 6 (six) hours as needed for pain (specific location in comments). 16 tablet 08/15/2019 Active budesonide (PULMICORT FLEXHALER) 90 mcg/actuation inhaler Inhale 1 puff into the lungs 2 (two) times a day. Active phenazopyridine (PYRIDIUM) 200 MG tablet Take 1 tablet (200 mg total) by mouth 3 (three) times a day as needed for pain (specific location in comments). 10 tablet 08/20/2021 Active Active Problems No known active problems Social History Tobacco Use Types Packs/Day Years Used Date Smoking Tobacco: Never Smokeless Tobacco: Never Alcohol Use Standard Drinks/Week Comments Yes 0 (1 standard drink = 0.6 oz pur e alcohol) Education Answer Date Recorded Are you interested in more education? Not on leonardo e 12/08/2022 Are you concerned about learning? Not on file 12/08/2022 No 12/08/2022 No 12/08/2022 Digital Access Answer Date Recorded No 01/06/2023 No 01/06/2023 No 01/06/2023 Reliable internet access at home? Not on file 01/06/2023 Device with a working camera? Not on file Comments No Sex and Gender Information Value Date Recorded Sex Assigned at Female 08/15/2019 6:26 PM EST Legal Sex Female 6:03 PM EST Gender Identity Female 08/15/2019 6:26 PM EST Sexual Orientation Not on file Last Filed Vital Signs Vital Sign Reading Time Taken Comments Blood Pressure 122/78 08/21/2021 12:08 AM EST Pulse 85 08/21/2021 12:08 AM EST Temperature 36.3 C (97.3 F) 08/21/2021 12:08 AM EST Respiratory Rate 18 08/21/2021 12:08 AM EST Oxygen Saturation 100% 08/21/2021 12:08 AM EST Inhaled Oxygen Concentration - - Weight 106.1 kg (234 lb) 08/20/2021 9:30 PM EST Height 162.6 cm (5' 4 ) 06/20/2021 10:08 AM EST Body Mass Index 40.17 06/20/2021 10:08 AM EST Plan of Treatment Health Maintenance Due Date Last Done Comments Adult Td,Tdap Booster 1994 DEPRESSION SCREENING 2006 HEPATITIS C SCREENING 2012 HIV ONE-TIME SCREENING (18-6 5 YEARS) 2012 PAP SMEAR 2015 INFLUENZA VACCINE (#1) 2025 COVID-19 VACCINE (2023-2 5 season) 2025 SMOKING STATUS SCREENING (On ce After 26 Yrs) Completed 06/20/2021 HEPATITIS A VACCINES Aged Out No long er eligible based on patient's age to complete this topic HIB VACCINES Aged Out No longer eligi ble based on patient's age to complete this topic MENINGOCOCCAL VACCINES (ACWY) Aged Out No longer eligible based on patient's age to complete this topic MENINGOCOCCAL VACCINES (B) Aged Out N o longer eligible based on patient's age to complete this topic PNEUMOCOCCAL VACCINES (0-49 years) Aged Out No longer eligible based on patient's age to complete this topic Medical Devices Not on file Insurance [employer] FULL [employer] [facility] [email or web address] [facility] NET FULL [facility] [place] [address] LIMITED [email or web address] [facility] [place] [address] LIMITED [email or web address] [facility] FULL [facility] NET FULL Care Teams Deputy Chief Sheriff Relationship Specialty Start Date End Date Veronica Matta MD [address] [place] [address] [address] [place] [address] PCP - General Internal Medicine 08/15/19 Additional Source Comments The information contained in this document represents components of the legal health record. It is not the complete legal health record.[facility]
[2025-04-16 06:44] LABS: Appearance Urine Clear; Glucose Urine UA Negative (Negative); PH 5.5 (5.0-9.0); Specific Gravity - Urine 1.025 (1.005-1.025); UMIC TRIGGER UACC YES
[2025-04-16 06:51] LABS: UPreg QC Valid YES
[2025-04-16 06:52] LABS: UACC Culture Trigger YES
[2025-04-16 07:11] VITALS: BP 126/99; PULSE 70; RESP 16; O2SAT 99
[2025-04-16 08:46] VITALS: BP 126/99; PULSE 70; RESP 16; TEMP 36.7; O2SAT 99
== END 2025-04-16 08:47 | disposition home or self-care (01) ==
PROVIDERS: Emergency Provider Emergency Medicine
DX: M54.42 Lumbago with sciatica, left side (principal); M79.605 Pain in left leg; R31.9 Hematuria, unspecified; Z79.899 Other long term (current) drug therapy
CPT/HCPCS: 72100; 81001; 81025; 87086; 96372; 99284; J1885

== ENCOUNTER → 2025-04-16 06:58 | Outpatient (BNV) | payer SELFPAY | PROVIDERS: Emergency Provider Emergency Medicine; Visit Provider Radiology Diagnostic Radiology | DX: M54.50 Low back pain, unspecified (principal) | CPT/HCPCS: 72100 ==